=== PATIENT | female | born 1950 | race Caucasian/White ===

== ENCOUNTER 2018-07-02 11:22 | Emergency (ER) | payer OTHER ==
--- OUTSIDE RECORDS SUMMARY | 2018-07-02 11:25 | XMS REPORT | Clinical Summary ---
:1950 Author Organization [facility] Address [address] [place] [address] Care Team Providers Name Role Phone Eli Tovar MD Primary Care Provider Allergies Active Allergy Reactions Severity Noted Date Comments Ampicillin Rash Low 12/18/2017 Erythromycin 12/18/2017 Unknown reaction Penicillins Rash Low 12/18/2017 Medications Medication Sig Dispensed Refills Start Date End Date Status insulin ASPART Novolog U-100 0 Active (NovoLOG U-100 Insulin aspart Insulin aspart) 100 unit/mL 100 unit/mL subcutaneous injection solution BUMETanide (BUMEX) Take 1 mg by 0 05/03/2017 Active 0.5 MG tablet mouth every morning. rosuvastatin Take 20 mg by 0 Active (CRESTOR) 20 MG mouth nightly. tablet insulin Inject under the 0 Active glargine,hum.rec.a skin. 30 units in nlog (BASAGLAR am, 25 units in KWIKPEN U-100 pm. INSULIN SUBQ) CALCITRIOL ORAL Take by mouth 0 Active daily. magnesium oxide Take 400 mg by 0 Active (MAG-OX) 400 mg mouth daily. tablet carvedilol (COREG) Take 25 mg by 0 Active 25 MG tablet mouth 4 (four) times a day. ergocalciferol, Take by mouth 0 Active vitamin D2, daily. (VITAMIN D2 ORAL) ferrous sulfate Take by mouth 0 Active (SLOW FE ORAL) daily. cyanocobalamin/fol Take by mouth 0 Active ic ac/vit B6 daily. (FOLBEE ORAL) esomeprazole Take by mouth 0 Active magnesium (NEXIUM every morning. ORAL) traMADol (ULTRAM) Take 50 mg by 0 Active 50 mg tablet mouth nightly. insulin GLARGINE Basaglar KwikPen U-100 Insulin 100 unit/mL (3 mL) subcutaneous 0 Active (BASAGLAR KWIKPEN INJECT 35 UNIT(S) TWICE A DAY BY SUBCUTANEOUS ROUTE FOR 90 DAYS. U-100 INSULIN) 100 unit/mL injection (pen) tamoxifen TAKE 1 TABLET BY 90 tablet 3 06/03/2018 Active (NOLVADEX) 20 MG MOUTH EVERY DAY 9 chemo tabletIndications: Atypical ductal hyperplasia of breast, Type 2 diabetes mellitus with microalbuminuria, with long-term current use of insulin (HCC) hydrALAZINE Take 100 mg by 2 04/22/2018 Active (APRESOLINE) 100 mouth 3 (three) MG tablet times a day. losartan (COZAAR) Take 50 mg by 2 05/22/2018 Active 50 MG tablet mouth daily. ASPIRIN LOW DOSE Take 81 mg by 0 Active ORAL mouth daily. levoFLOXacin Levaquin 500 mg tablet 0 Discontinued (LEVAQUIN) 500 MG Take 1 tablet every 24 hours by oral route for 10 days. 8 tablet blood sugar OneTouch Ultra 0 Discontinued diagnostic strips Blue Test Strip 8 (ONETOUCH ULTRA BLUE TEST STRIP) strip test strips benzonatate Tessalon Perles 100 mg capsule 0 Discontinued (TESSALON PERLES) Take 1 capsule 3 times a day by oral route. 8 100 MG capsule aspirin (ECOTRIN) aspirin 81 mg tablet,delayed release 0 Discontinued 81 MG enteric Take 1 tablet every day by oral route. 8 coated tablet carvedilol (COREG) carvedilol 6.25 mg tablet 0 Discontinued 6.25 MG tablet 1 tablet orally four times daily 8 amLODIPine amlodipine 5 mg tablet 0 Discontinued (NORVASC) 5 mg Take 1 tablet every day by oral route in the morning for 30 days. 8 tablet tamoxifen Take 1 tablet (20 30 tablet 2 02/08/2018 Discontinued (NOLVADEX) 20 MG mg total) by 8 chemo mouth daily. tabletIndications: Atypical ductal hyperplasia of breast, Type 2 diabetes mellitus with microalbuminuria, with long-term current use of insulin (HCC) Active Problems Problem Noted Date Articular gout 12/18/2017 Combined forms of age-related cataract of both eyes 12/18/2017 Overview: Visually significant. Schedule phaco/IOL. 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 Will do OCT macula with pre-op. Diabetic neuropathy 10/02/2017 IDDM (insulin dependent diabetes mellitus) 05/02/2017 Essential hypertension 05/02/2017 Anemia 12/28/2016 Encounters Date Type Specialty Care Team Description 06/28/2018 Telephone Oncology Lesly Enrique MD 06/28/2018 Telephone Radiology Yasmine Madrid, RN 06/26/2018 Hospital Encounter Radiology Julianne Enrique ductal Lesly Whitten MD hyperplasia of left breast 06/26/2018 Hospital Encounter Radiology Julianne Enrique ductal Lesly Whitten MD hyperplasia of left breast 06/26/2018 Telephone Radiology Yasmine Madrid, RN 06/14/2018 Telephone Oncology Lesly Enrique MD 06/12/2018 Telephone Radiology Gema Felton RN 06/12/2018 Orders Only Oncology Klaus, Intraductal papilloma Lesly Whitten MD of breast, unspecified laterality (Primary Dx) 06/10/2018 Lab Lab Klaus, Julianne ductal Lesly Whitten MD hyperplasia of left breast 06/10/2018 Office Visit Oncology Nirsanty, Atypical ductal hyperplasia of breast (Primary Dx); Lesly Whitten MD Abnormal mammogram 06/10/2018 Hospital Encounter Radiology Nirsanty, Atypical ductal hyperplasia of breast; Lesly Whitten MD Type 2 diabetes mellitus with microalbuminuria, with long- term current use of insulin ([facility]) 06/10/2018 Hospital Encounter Radiology Niravavasquez, Atypical ductal hyperplasia of breast; Lesly Whitten MD Type 2 diabetes mellitus with microalbuminuria, with long- term current use of insulin ([facility]) 06/10/2018 Orders Only Oncology Klaus, Atypical ductal Lesly Whitten MD hyperplasia of left breast (Primary Dx) 05/30/2018 Refill Oncology Niravavasquez, Atypical ductal hyperplasia of breast; Lesly Whitten MD Type 2 diabetes mellitus with microalbuminuria, with long- term current use of insulin ([facility]) 02/08/2018 Office Visit Oncology Nirsanty, Atypical ductal hyperplasia of breast (Primary Dx); Lesly Whitten MD Type 2 diabetes mellitus with microalbuminuria, with long- term current use of insulin 02/04/2018 Transcribe Orders Access [place], Atypical ductal Octavio Ellsworth MD hyperplasia of breast (Primary Dx) 01/30/2018 Telephone Oncology Monika Rasheed MD 01/30/2018 Transcribe Orders Access [place], Atypical ductal Octavio Ellsworth MD hyperplasia of breast (Primary Dx) 01/23/2018 Anesthesia Event Urology Dave Annia Edwige, RANGE AIDE 01/23/2018 Surgery Urology [place], EXCISION OF LEFT Octavio Ellsworth MD BREAST MASS WITH LOCALIZATION 01/23/2018 Hospital Encounter Radiology [place], Breast mass Octavio Ellsworth MD 01/23/2018 Hospital Encounter Urology [place], Lump or mass in breast Octavio Ellsworth MD 01/22/2018 Transcribe Orders Access [place], Breast mass (Primary Octavio Ellsworth MD Dx) 01/03/2018 Hospital Encounter Radiology [place], Preop examination Octavio Ellsworth MD 01/03/2018 Pre-Admit Testing Pre-Admission [place], Preop testing (Primary Dx); Appointment Testing Octavio Ellsworth MD Preop examination; Type 2 diabetes mellitus with diabetic chronic kidney disease, unspecified CKD stage, unspecified prison insulin use status 01/03/2018 Transcribe Orders Access [place], Preop examination Octavio Ellsworth MD (Primary Dx) 12/25/2017 Hospital Encounter Radiology [place], Breast mass Octavio Ellsworth MD 12/25/2017 Hospital Encounter Radiology [place], Breast mass Octavio Ellsworth MD 12/25/2017 Telephone Radiology Asmita Weston, WILFRID 12/24/2017 Transcribe Orders Access [place], Breast mass (Primary Octavio Ellsworth MD Dx) 12/18/2017 Office Visit Ophthalmology Eli Blair Combined forms of age- related cataract of both eyes (Primary Dx)Danyelle Sun MD Mild nonproliferative diabetic retinopathy of both eyes without macular edema associated with type 2 diabetes mellitus 12/18/2017 Hospital Encounter Radiology [place], Breast changesOctavio MD fibrocystic, unspecified laterality 12/18/2017 Hospital Encounter Radiology [place], Breast changesOctavio MD fibrocystic, unspecified laterality after 07/01/2017 Immunizations Name Dates Previously Given Next Due INFLUENZA QUAD 04/13/2017, 04/28/2015 Social History Tobacco Use Types Packs/Day Years Used Date Never Smoker Smokeless Tobacco: Never Used Alcohol Use Drinks/Week oz/Week Comments No Sex Assigned at Date Recorded Not on file Job Start Date Occupation Industry Not on file Not on file Not on file Travel History Travel Start Travel End No recent travel history available. Last Filed Vital Signs Vital Sign Reading Time Taken Blood Pressure 154/66 06/26/2018 11:49 AM [employer] Pulse 85 06/26/2018 11:49 AM [employer] Temperature 35.9 C (96.6 F) 06/10/2018 11:22 AM [employer] Respiratory Rate 16 06/26/2018 11:49 AM [employer] Oxygen Saturation 95% 06/26/2018 11:49 AM [employer] Inhaled Oxygen Concentration - - Weight 118 kg (259 lb 9 oz) 06/10/2018 11:22 AM [employer] Height 165.1 cm (5' 5") 06/10/2018 11:22 AM [employer] Body Mass Index 43.19 06/10/2018 11:22 AM [employer] Plan of Treatment Date Type Specialty Care Team Description 07/04/2018 Appointment Radiology Lesly Enrique MD [address] [address] [phone] 12/09/2018 Appointment Radiology Lesly Enrique MD [address] [address] 12/09/2018 Office Visit Oncology Lesly Enrique MD [address] [place] [address] [phone] Health Maintenance Due Date Last Done Comments DIABETIC FOOT EXAM 1960 COLON CANCER SCREENING 2000 SHINGLES VACCINES (1 of 2) 2000 PNEUMOCOCCAL POLYSACCHARIDE VACCINE 09/29/2015 AGE 65 AND OVER PNEUMOCOCCAL-13 09/29/2015 INFLUENZA VACCINE 02/06/2018 04/13/2017, 04/28/2015 DIABETIC RETINAL EYE EXAM 12/18/2018 12/18/2017, 12/18/2017, 12/18/2017, Additional history exists BREAST CANCER SCREENING 06/26/2020 06/26/2018, 06/10/2018, 06/10/2018, Additional history exists Procedures Procedure Name Priority Date/Time Associated Comments Diagnosis SURGICAL PATHOLOGY Routine 06/26/2018 1:22 Results for this REQUEST PM [employer] procedure are in the results section. MAMMO DIAGNOSTIC W CAD Routine 06/26/2018 11:30 Atypical ductal Results for this LEFT AM [employer] hyperplasia of left procedure are in breast the results section. US BREAST BIOPSY LEFT Routine 06/26/2018 11:15 Atypical ductal Results for this AM [employer] hyperplasia of left procedure are in breast the results section. ESTIMATED GFR Routine 06/10/2018 12:44 Results for this PM [employer] procedure are in the results section. COMPREHENSIVE Routine 06/10/2018 12:44 Atypical ductal Results for this METABOLIC PANEL PM [employer] hyperplasia of left procedure are in breast the results section. US BREAST COMPLETE Routine 06/10/2018 10:31 Atypical ductal Results for this LEFT AM [employer] hyperplasia of procedure are in breast the results Type 2 diabetes section. mellitus with microalbuminuria, with long-term current use of insulin (HCC) MAMMO BREAST Routine 06/10/2018 10:06 Atypical ductal Results for this DIAGNOSTIC AM [employer] hyperplasia of procedure are in TOMOSYNTHESIS LEFT breast the results Type 2 diabetes section. mellitus with microalbuminuria, with long-term current use of insulin (HCC) POC GLUCOSE Routine 01/23/2018 3:50 Results for this PM CDT procedure are in the results section. SURGICAL PATHOLOGY Routine 01/23/2018 3:07 Results for this REQUEST PM CDT procedure are in the results section. KS AN ELECTIVE Routine 01/23/2018 2:29 SUPRAGLOTTIC AIRWAY PM CDT Procedure Note - Maggie Higgins CRNA - 01/23/2018 2:29 PM CDT Airway Date/Time: 01/23/2018 2:16 PM Performed by: MAGGIE HIGGINS Authorized by: IDRIS CACERES Location: OR Urgency: Elective Difficult Airway: No Anesthesiologist: IDRIS CACERES Resident/MANAGER COUNCIL/AA: MAGGIE HIGGINS Performed by: resident/MANAGER COUNCIL/AA Preoxygenated with 100% O2: Yes Mask Ventilation: Easy mask Final Airway Type: Supraglottic airway Final LMA: Ambu LMA Size: 4 Number of Attempts at Approach: 1 Eyes taped immediately after LOC; Easy mask ventilation; atraumatic intubation through open vocal cords; (+) chest rise& ETCO2; oral structures intact as per pre op POC GLUCOSE Routine 01/23/2018 12:10 PM Results for this CDT procedure are in the results section. MAMMO DIAGNOSTIC W CAD Routine 01/23/2018 11:07 AM Breast mass Results for this LEFT CDT procedure are in the results section. BREAST SPECIMEN Routine 01/23/2018 11:03 AM Lump or mass in Results for this CDT breast procedure are in the results section. US BREAST LOCALIZATION Routine 01/23/2018 11:03 AM Lump or mass in Results for this LEFT CDT breast procedure are in the results section. BIOPSY, BREAST, WITH 01/23/2018 9:00 AM Lump or mass in NEEDLE LOCALIZATION CDT breast Case Notes REQ 0900 START Special Needs REQ 0900 START POC GLUCOSE Routine 01/23/2018 6:09 AM Results for this CDT procedure are in the results section. ECG 12-LEAD Routine 01/03/2018 5:15 PM Preop testing Results for this CDT procedure are in the results section. ZZESTIMATED GFR Routine 01/03/2018 4:45 PM Results for this CDT procedure are in the results section. HEPATIC FUNCTION PANEL Routine 01/03/2018 4:45 PM Preop examination Results for this CDT Type 2 diabetes procedure are in mellitus with the results diabetic chronic section. kidney disease, unspecified CKD stage, unspecified prison insulin use status HEMOGLOBIN A1C Routine 01/03/2018 4:45 PM Preop examination Results for this CDT Type 2 diabetes procedure are in mellitus with the results diabetic chronic section. kidney disease, unspecified CKD stage, unspecified meterman insulin use status COMPREHENSIVE Routine 01/03/2018 4:45 PM Preop testing Results for this METABOLIC PANEL CDT procedure are in the results section. CBC HEMOGRAM Routine 01/03/2018 4:45 PM Preop testing Results for this CDT procedure are in the results section. XR CHEST 2 VW Routine 01/03/2018 3:36 PM Preop examination Results for this CDT procedure are in the results section. SURGICAL PATHOLOGY Routine 12/25/2017 2:51 PM Results for this REQUEST CDT procedure are in the results section. MAMMO DIAGNOSTIC W CAD Routine 12/25/2017 12:17 PM Breast mass Results for this LEFT CDT procedure are in the results section. US BREAST BIOPSY LEFT Routine 12/25/2017 12:04 PM Breast mass Results for this CDT procedure are in the results section. US BREAST COMPLETE Routine 12/18/2017 12:06 PM Breast changes, Results for this BILATERAL CDT fibrocystic, procedure are in unspecified the results laterality section. MAMMO BREAST Routine 12/18/2017 11:33 AM Breast changes, Results for this DIAGNOSTIC CDT fibrocystic, procedure are in TOMOSYNTHESIS unspecified the results BILATERAL laterality section. after 07/01/2017 Results Surgical pathology request (06/26/2018 1:22 PM [employer])Only the most recent of3 resultswithin the time period is included. [facility] DEPARTMENT OF PATHOLOGY AND GENOMIC MEDICINE Surgical pathology report See link below for PDF [facility] DEPARTMENT OF Lab Report PATHOLOGY AND GENOMIC MEDICINE Result status This is Final Report [facility] DEPARTMENT OF for [id number] PATHOLOGY AND GENOMIC MEDICINE Performing Organization Address City/State/Zipcode Phone Number [facility] DEPARTMENT OF PATHOLOGY AND [address] [place] [address] GENOMIC MEDICINE Mammo Diagnostic w Cad Left (06/26/2018 11:30 AM [employer])Only the most recent of3 resultswithin the time period is included. Narrative Performed At PROCEDURE: [facility] US BREAST BIOPSY LEFT, MAMMO DIAGNOSTIC W CAD LEFT CLINICAL HISTORY: The patient came in for ultrasound-guided core biopsy/biopsies of the left breast as previously recommended. The patient has multiple masses the partially cystic partially solid mass in the medial aspect of the breast was targeted for biopsy CONSENT: Informed consent for ultrasound guided core needle biopsy/biopsies of the left breast was obtained following a detailed discussion of the procedure, alternatives, risks, and complications including hemorrhage, infection, and clip migration. PROCEDURE: After a confirmatory pause with the biopsy team and after obtaining informed consent, approximately 3 core samples were obtained through a single skin incision and a coil-shaped clip was deployed marking the biopsy site. A vacuum-assisted needle was utilized under ultrasound guidance. The core samples obtained were sent to pathology. Postprocedure mammogram obtained, not for diagnostic purposes but for clip identification, confirmed clip deployment and postbiopsy changes. The patient tolerated the procedure and left the department in stable condition. Histology is pending. IMPRESSION: Ultrasound guided core needle biopsy/biopsies of the left breast are complete.Final pathology report is pending. Addendum will follow. [id number] Procedure Note Interface, Radiology Results Incoming - 06/26/2018 11:52 AM [employer] PROCEDURE: US BREAST BIOPSY LEFT, MAMMO DIAGNOSTIC W CAD LEFT CLINICAL HISTORY: The patient came in for ultrasound-guided core biopsy/biopsies of the left breast as previously recommended. The patient has multiple masses the partially cystic partially solid mass in the medial aspect of the breast was targeted for biopsy CONSENT: Informed consent for ultrasound guided core needle biopsy/biopsies of the left breast was obtained following a detailed discussion of the procedure, alternatives, risks, and complications including hemorrhage, infection, and clip migration. PROCEDURE: After a confirmatory pause with the biopsy team and after obtaining informed consent, approximately 3 core samples were obtained through a single skin incision and a coil-shaped clip was deployed marking the biopsy site. A vacuum- assisted needle was utilized under ultrasound guidance. The core samples obtained were sent to pathology. Postprocedure mammogram obtained, not for diagnostic purposes but for clip identification, confirmed clip deployment and postbiopsy changes. The patient tolerated the procedure and left the department in stable condition. Histology is pending. IMPRESSION: Ultrasound guided core needle biopsy/biopsies of the left breast are complete. Final pathology report is pending. Addendum will follow. [id number] Performing Organization Address City/State/Zipcode Phone Number [facility] [address] [place] [address] US Breast Biopsy Left (06/26/2018 11:15 AM [employer])Only the most recent of2 resultswithin the time period is included. Narrative Performed At PROCEDURE: [facility] US BREAST BIOPSY LEFT, MAMMO DIAGNOSTIC W CAD LEFT CLINICAL HISTORY: The patient came in for ultrasound-guided core biopsy/biopsies of the left breast as previously recommended. The patient has multiple masses the partially cystic partially solid mass in the medial aspect of the breast was targeted for biopsy CONSENT: Informed consent for ultrasound guided core needle biopsy/biopsies of the left breast was obtained following a detailed discussion of the procedure, alternatives, risks, and complications including hemorrhage, infection, and clip migration. PROCEDURE: After a confirmatory pause with the biopsy team and after obtaining informed consent, approximately 3 core samples were obtained through a single skin incision and a coil-shaped clip was deployed marking the biopsy site. A vacuum-assisted needle was utilized under ultrasound guidance. The core samples obtained were sent to pathology. Postprocedure mammogram obtained, not for diagnostic purposes but for clip identification, confirmed clip deployment and postbiopsy changes. The patient tolerated the procedure and left the department in stable condition. Histology is pending. IMPRESSION: Ultrasound guided core needle biopsy/biopsies of the left breast are complete.Final pathology report is pending. Addendum will follow. [id number] Procedure Note Hm Interface, Radiology Results Incoming - 06/26/2018 11:52 AM [employer] PROCEDURE: US BREAST BIOPSY LEFT, MAMMO DIAGNOSTIC W CAD LEFT CLINICAL HISTORY: The patient came in for ultrasound-guided core biopsy/biopsies of the left breast as previously recommended. The patient has multiple masses the partially cystic partially solid mass in the medial aspect of the breast was targeted for biopsy CONSENT: Informed consent for ultrasound guided core needle biopsy/biopsies of the left breast was obtained following a detailed discussion of the procedure, alternatives, risks, and complications including hemorrhage, infection, and clip migration. PROCEDURE: After a confirmatory pause with the biopsy team and after obtaining informed consent, approximately 3 core samples were obtained through a single skin incision and a coil-shaped clip was deployed marking the biopsy site. A vacuum- assisted needle was utilized under ultrasound guidance. The core samples obtained were sent to pathology. Postprocedure mammogram obtained, not for diagnostic purposes but for clip identification, confirmed clip deployment and postbiopsy changes. The patient tolerated the procedure and left the department in stable condition. Histology is pending. IMPRESSION: Ultrasound guided core needle biopsy/biopsies of the left breast are complete. Final pathology report is pending. Addendum will follow. [id number] Performing Organization Address City/[facility] Cent[facility] Phone Number [facility] [address] [place] [address] Estimated GFR (06/10/2018 12:44 PM [employer]) Estimated GFR 14 (A) mL/min/1.73 m2 [facility] Comment: HOSPITAL CatergoryUnitsInterpretation G1 >=90 Normal or high G2 60-89Mildly decreased [id number] to moderately decreased [id number] to severely decreased G4 15-29Severely decreased G5 <15Kidney failure The eGFR was calculated using the Chronic Kidney Disease Epidemiology Collaboration (CKD-EPI) equation. Interpretation is based on recommendations of the National Kidney Foundation-Kidney Disease Outcomes Quality Initiative (NKF-KDOQI) published in 2014. Specimen Plasma specimen Performing Organization Address City/[facility]/Zipcode Phone Number [facility] DEPARTMENT OF PATHOLOGY AND [address] [place] [address] [address] [address] Comprehensive metabolic panel (06/10/2018 12:44 PM [employer])Only the most recent of2 resultswithin the time period is included. Sodium 147 135 - 148 mEq/L [facility] Potassium 5.3 (H) 3.5 - 5.0 mEq/L [facility] Chloride 112 98 - 112 mEq/L [facility] CO2 25 24 - 31 mEq/L [facility] Anion gap 10@ANIO 7 - 15 mEq/L [facility] BUN 74 (H) 8 - 23 mg/dL [facility] Creatinine 3.20 (H) 0.50 - 0.90 mg/dL [facility] Glucose 56 (L) 65 - 99 mg/dL [facility] Calcium 9.2 8.8 - 10.2 mg/dL [facility] Protein 5.6 (L) 6.3 - 8.3 g/dL [facility] Comment: HOSPITAL 4.6-7.0 g/dL 1 week 4.4-7.6 g/dL 7 months-1year5.1-7.3 g/dL 1-2 years5.6-7.5 g/dL >3 years6.0-8.0 g/dL 18-150 6.3-8.3 g/dL Albumin 2.8 (L) 3.5 - 5.0 g/dL [facility] A/G ratio 1.0 0.7 - 3.8 [facility] Alkaline phosphatase 33 (L) 35 - 104 U/L [facility] AST 18 10 - 35 U/L [facility] ALT 19 5 - 50 U/L [facility] Total bilirubin <0.2 0.0 - 1.2 mg/dL [facility] Specimen Plasma specimen Performing Organization Address City/State/Zipcode Phone Number [facility] DEPARTMENT OF PATHOLOGY AND [address] [place] [address] GENOMIC MEDICINE [facility] [address] [place] [address] US Breast Complete Left (06/10/2018 10:31 AM [employer]) Narrative Performed At PROCEDURE: [facility] MAMMO BREAST DIAGNOSTIC TOMOSYNTHESIS LEFT, US BREAST COMPLETE LEFT Computer-assisted detection was utilized for the interpretation of this exam. COMPARISON: Prior localization images of 01/23/2018 and dating back to 2014. TECHNIQUE: Left digital diagnostic mammogram with tomosynthesis was performedand interpreted using computer-assisted detection. CLINICAL HISTORY: The patient has no current palpable breast complaints. The patient has a personal history of atypical ductal hyperplasia and papillary lesions.The patient has a family history of breast cancer in her mother. FINDINGS: MAMMOGRAM: The breast parenchyma is heterogeneously dense. This limits the overall sensitivity of mammography, possibly obscuring the detection of small masses. Postsurgical distortion is noted in the retroareolar region. A ribbon clip is noted anteriorly there are 2 groups of calcifications which have indeterminate features that cannot be confirmed on the prior examination.One is located centrally and just posterior to the surgical area of architectural distortion.The other one is very superficial and medial to the area of distortion. Loosely-grouped calcifications are also noted in the inner portion of the breast and throughout the breast parenchyma. 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 ULTRASOUND: The patient was transferred to ultrasound. Left real-time whole breast sonography included all four quadrants and the retroareolar region under close supervision by the radiologist. Ultrasound sound shows some multiple subcentimeter complex masses predominantly in the inner central breast, the retroareolar region and the 12 o'clock position. IMPRESSION: Postsurgical changes in the left retroareolar region with two indeterminate clusters of calcifications noted mammographically and several subcentimeter complex nodules noted mammographically. 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 If for some reason the MRI cannot be obtained then selecting the more suspicious cluster of calcifications in the central portion of the retroareolar region posterior to the surgical scar is recommended as well as the more solid appearing mass measuring approximately 1 cm in the 3 o'clock position of the breast. Findings and recommendations were discussed with the patient at the time of the examination. BI-RADS Category 4. Suspicious. This facility is accredited by [employer] for Mammography. A negative x-ray report should not delay biopsy if a dominant or clinically suspicious mass is present. Not all cancers are identified by x-ray. Performing Organization Address City/State/Zipcode Phone Number [facility] [address] [place] [address] Mammo Breast Diagnostic Tomosynthesis Left (06/10/2018 10:06 AM DIRECTOR FUNDS DEVELOPMENT) Narrative Performed At PROCEDURE: [facility] MAMMO BREAST DIAGNOSTIC TOMOSYNTHESIS LEFT, US BREAST COMPLETE LEFT Computer-assisted detection was utilized for the interpretation of this exam. COMPARISON: Prior localization images of 01/23/2018 and dating back to 2014. TECHNIQUE: Left digital diagnostic mammogram with tomosynthesis was performedand interpreted using computer-assisted detection. CLINICAL HISTORY: The patient has no current palpable breast complaints. The patient has a personal history of atypical ductal hyperplasia and papillary lesions.The patient has a family history of breast cancer in her mother. FINDINGS: MAMMOGRAM: The breast parenchyma is heterogeneously dense. This limits the overall sensitivity of mammography, possibly obscuring the detection of small masses. Postsurgical distortion is noted in the retroareolar region. A ribbon clip is noted anteriorly there are 2 groups of calcifications which have indeterminate features that cannot be confirmed on the prior examination.One is located centrally and just posterior to the surgical area of architectural distortion.The other one is very superficial and medial to the area of distortion. Loosely-grouped calcifications are also noted in the inner portion of the breast and throughout the breast parenchyma. 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 ULTRASOUND: The patient was transferred to ultrasound. Left real-time whole breast sonography included all four quadrants and the retroareolar region under close supervision by the radiologist. Ultrasound sound shows some multiple subcentimeter complex masses predominantly in the inner central breast, the retroareolar region and the 12 o'clock position. IMPRESSION: Postsurgical changes in the left retroareolar region with two indeterminate clusters of calcifications noted mammographically and several subcentimeter complex nodules noted mammographically. 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 If for some reason the MRI cannot be obtained then selecting the more suspicious cluster of calcifications in the central portion of the retroareolar region posterior to the surgical scar is recommended as well as the more solid appearing mass measuring approximately 1 cm in the 3 o'clock position of the breast. Findings and recommendations were discussed with the patient at the time of the examination. BI-RADS Category 4. Suspicious. This facility is accredited by [employer] for Mammography. A negative x-ray report should not delay biopsy if a dominant or clinically suspicious mass is present. Not all cancers are identified by x-ray. Performing Organization Address City/[facility]/Zipcode Phone Number [facility] [address] [place] [address] POC glucose (01/23/2018 3:50 PM CDT)Only the most recent of3 resultswithin the time period is included. POC glucose 138 (H) 65 - 99 mg/dL [facility] DEPARTMENT OF PATHOLOGY AND Comment: GENOMIC MEDICINE No Action Needed Meter ID: [id number] Block Layer: Nella Cottrell Performing Organization Address [facility]/Zipcode Phone Number [facility] DEPARTMENT OF PATHOLOGY AND [address] [place] [phone] GENOMIC MEDICINE Breast Specimen (01/23/2018 11:03 AM CDT) Narrative Performed At EXAMINATION:BREAST SPECIMEN [facility] IMPRESSION: Distal Faxitron breast specimen radiography was provided for the surgeon by [facility]. The specimen radiograph demonstrates the presence of the localization wire and adjacent tissue. The ribbon shaped biopsy marker clip is not present within the specimen as it is very superficial on the mammographic images, suggestive of a dermal location. Preoperative localization was performed of the residual mass, not the biopsy marker clip. These findings were discussed by telephone with Dr. Solano at the time of the exam. [email or web address] Procedure Note Interface, Radiology Results Incoming - 01/23/2018 4:52 PM CDT EXAMINATION: BREAST SPECIMEN IMPRESSION: Distal Faxitron breast specimen radiography was provided for the surgeon by [facility]. The specimen radiograph demonstrates the presence of the localization wire and adjacent tissue. The ribbon shaped biopsy marker clip is not present within the specimen as it is very superficial on the mammographic images, suggestive of a dermal location. Preoperative localization was performed of the residual mass, not the biopsy marker clip. These findings were discussed by telephone with Dr. Solano at the time of the exam. [email or web address] Performing Organization Address [facility] Cent[facility]ode Phone Number [facility] [address] [place] [address] US Breast Localization Left (01/23/2018 11:03 AM CDT) Narrative Performed At EXAMINATION:US BREAST LOCALIZATION LEFT, MAMMO DIAGNOSTIC W CAD [facility] LEFT01/23/2018 COMPARISONS:12/25/2017 postbiopsy mammogram and ultrasound guided core needle biopsy images INDICATION:Subareolar left breast mass suggestive of an intraductal papilloma PROCEDURE: Following a discussion of potential risks, benefits and alternatives, the patient gave verbal and written informed consent for ultrasound-guided preoperative wire localization of the left breast. A timeout was performed to verify the patient's name, date of , procedure and laterality. The patient was placed supine in the ultrasound intervention suite and the left breast was sterilely prepped and draped in the usual manner. 5 ml of lidocaine was administered subcutaneously for local anesthesia. Then, under direct and continuous sonographic guidance, a 5 cm Cabrera II preoperative localization needle was advanced to the level of the target mass. A wire was deployed and the needle was removed. The mass correlates in depth to the reinforced portion of the wire (approximately 2 cm from skin entry), however, the wire itself traverses along the superior margin of the mass. A predominant portion of the mass is inferior to the wire. These findings were conveyed to Dr. Solano at the time of the exam. Post-procedure CC and LM imaging was performed for documentation of the wire and utilizing patient in the OR. There were no immediate complications. The patient tolerated the procedure well and was transferred to the OR in stable condition with annotated images. IMPRESSION: Technically successful ultrasound-guided preoperative wire localization of a subareolar left breast mass. Further management per Dr. Solano. Of note, the residual mass was targeted for localization utilizing ultrasound guidance. The biopsy marker clip is slightly removed from the residual mass observed sonographically. [email or web address] Procedure Note Hm Interface, Radiology Results Incoming - 01/23/2018 12:16 PM CDT EXAMINATION: US BREAST LOCALIZATION LEFT, MAMMO DIAGNOSTIC W CAD LEFT 2017 COMPARISONS: 12/25/2017 postbiopsy mammogram and ultrasound guided core needle biopsy images INDICATION: Subareolar left breast mass suggestive of an intraductal papilloma PROCEDURE: Following a discussion of potential risks, benefits and alternatives, the patient gave verbal and written informed consent for ultrasound-guided preoperative wire localization of the left breast. A timeout was performed to verify the patient's name, date of , procedure and laterality. The patient was placed supine in the ultrasound intervention suite and the left breast was sterilely prepped and draped in the usual manner. 5 ml of lidocaine was administered subcutaneously for local anesthesia. Then, under direct and continuous sonographic guidance, a 5 cm Cabrera II preoperative localization needle was advanced to the level of the target mass. A wire was deployed and the needle was removed. The mass correlates in depth to the reinforced portion of the wire (approximately 2 cm from skin entry), however, the wire itself traverses along the superior margin of the mass. A predominant portion of the mass is inferior to the wire. These findings were conveyed to Dr. Solano at the time of the exam. Post-procedure CC and LM imaging was performed for documentation of the wire and utilizing patient in the OR. There were no immediate complications. The patient tolerated the procedure well and was transferred to the OR in stable condition with annotated images. IMPRESSION: Technically successful ultrasound-guided preoperative wire localization of a subareolar left breast mass. Further management per Dr. Solano. Of note, the residual mass was targeted for localization utilizing ultrasound guidance. The biopsy marker clip is slightly removed from the residual mass observed sonographically. [email or web address] Performing Organization Address [facility] Centercoal Phone Number [facility]PITALStream [employer] Services [address] [place] [address] ECG 12 lead (01/03/2018 5:15 PM CDT) Ventricular rate 77 [facility] Atrial rate 77 [facility] KS interval 126 [facility] QRSD interval 94 [facility] QT interval 398 [facility] QTC interval 450 [facility] P axis 1 52 [facility] QRS axis 1 35 [facility] T wave axis 8 [facility] EKG impression Normal sinus rhythm-Nonspecific T wave [facility] MUSE abnormality-Abnormal ECG-- Performing Organization Address [facility] Phone Number [facility] [employer] [address] [place] [address] Estimated GFR (01/03/2018 4:45 PM CDT) GFR Non Af Amer 17 (A) mL/min/1.73 m2 [facility] DEPARTMENT OF PATHOLOGY AND GENOMIC MEDICINE GFR Af Amer 20 (A) mL/min/1.73 m2 [facility] DEPARTMENT OF Comment: PATHOLOGY AND GENOMIC Chronic kidney disease: <60 mL/min/1.73m2 MEDICINE Kidney failure: <15 mL/min/1.73m2 The estimated GFR is calculated from the IDMS-traceable Modification of Diet in Renal Disease Equation. The accuracy of the calculation is poor when the creatinine is normal. Calculated values >90 mL/min/1.73m2 are not reported. This equation has not been validated in children (<18 years), women, the elderly (>70 years), or ethnic groups other than Caucasians and Americans. Specimen Plasma specimen Performing Organization Address City/State/[facility] Centercode Phone Number [facility] DEPARTMENT OF PATHOLOGY AND [address] [place], [place] [id number] [facility] CBC hemogram (01/03/2018 4:45 PM CDT) WBC 11.80 (H) 4.50 - 11.00 k/uL [facility] DEPARTMENT OF PATHOLOGY AND GENOMIC MEDICINE RBC 3.30 (L) 4.20 - 5.50 m/uL [facility] DEPARTMENT OF PATHOLOGY AND GENOMIC MEDICINE HGB 9.7 (L) 12.0 - 16.0 g/dL [facility] DEPARTMENT OF PATHOLOGY AND GENOMIC MEDICINE HCT 32.4 (L) 37.0 - 47.0 % [facility] DEPARTMENT OF PATHOLOGY AND GENOMIC MEDICINE MCV 98.2 82.0 - 100.0 fL [facility] DEPARTMENT OF PATHOLOGY AND GENOMIC MEDICINE MCH 29.4 27.0 - 34.0 pg [facility] DEPARTMENT OF PATHOLOGY AND GENOMIC MEDICINE MCHC 29.9 (L) 31.0 - 37.0 g/dL [facility] DEPARTMENT OF PATHOLOGY AND GENOMIC MEDICINE RDW - SD 58.6 (H) 37.0 - 55.0 fL [facility] DEPARTMENT OF PATHOLOGY AND GENOMIC MEDICINE MPV 11.4 8.8 - 13.2 fL [facility] DEPARTMENT OF PATHOLOGY AND GENOMIC MEDICINE Platelet count 387 150 - 400 k/uL [facility] DEPARTMENT OF PATHOLOGY AND GENOMIC MEDICINE Nucleated RBC 0.60 /100 WBC [facility] DEPARTMENT OF PATHOLOGY AND GENOMIC MEDICINE Specimen Blood Performing Organization Address City/[facility] Centercode Phone Number [facility] DEPARTMENT OF PATHOLOGY AND [address] [place] [phone] [employer] [facility] Hemoglobin A1c (01/03/2018 4:45 PM CDT) Hemoglobin A1C 6.1 (H) 4.0 - 5.6 % [facility] DEPARTMENT OF PATHOLOGY Comment: AND GENOMIC MEDICINE HbA1c cutoffs for diagnosing diabetes: 4.0% - 5.6%=normal 5.7% - 6.4%=increased risk for diabetes (prediabetes) >=6.5%=diabetes Goals for glycemic control (ADA 2016) < 7.0%Target for non adults with diabetes. More or less stringent targets may be appropriate for individual patients. <7.5% Target for Children and adolescents with type 1 diabetes. Specimen Blood Performing Organization Address City/[facility]/Zipcode Phone Number [facility] DEPARTMENT OF PATHOLOGY AND [address] [place] [address] [employer] MEDICINE Hepatic function panel (01/03/2018 4:45 PM CDT) Albumin 3.3 (L) 3.5 - 5.0 g/dL [facility] DEPARTMENT OF PATHOLOGY AND GENOMIC MEDICINE Total bilirubin <0.2 0.0 - 1.2 mg/dL [facility] DEPARTMENT OF PATHOLOGY AND GENOMIC MEDICINE Bilirubin direct <0.2 0.0 - 0.3 mg/dL [facility] DEPARTMENT OF PATHOLOGY AND GENOMIC MEDICINE Alkaline phosphatase 55 35 - 104 U/L [facility] DEPARTMENT OF PATHOLOGY AND GENOMIC MEDICINE Protein 6.7 6.3 - 8.3 g/dL [facility] DEPARTMENT OF Comment: PATHOLOGY AND GENOMIC 4.6-7.0 g/dL MEDICINE 1 week 4.4-7.6 g/dL 7 months-1year5.1-7.3 g/dL 1-2 years5.6-7.5 g/dL >3 years6.0-8.0 g/dL 18-150 6.3-8.3 g/dL ALT 18 5 - 50 U/L [facility] DEPARTMENT OF PATHOLOGY AND GENOMIC MEDICINE AST 20 10 - 35 U/L [facility] DEPARTMENT OF PATHOLOGY AND GENOMIC MEDICINE Specimen Plasma specimen Performing Organization Address City/[facility] Centercode Phone Number [facility] DEPARTMENT OF PATHOLOGY AND [address] [place] [address] [facility] MEDICINE XR Chest 2 Vw (01/03/2018 3:36 PM CDT) Narrative Performed At EXAMINATION:XR CHEST 2 VW [facility] CLINICAL HISTORY:Z01.818 Encounter for other preprocedural examination, preop COMPARISON:To previous examination from 02/15/2005 IMPRESSION: Mild thoracolumbar scoliosis is present. Cardiac mediastinal silhouette is prominent, and the lungs are clear. [id number] Procedure Note Interface, Radiology Results Incoming - 01/03/2018 3:43 PM CDT EXAMINATION: XR CHEST 2 VW CLINICAL HISTORY: Z01.818 Encounter for other preprocedural examination, preop COMPARISON: To previous examination from 02/15/2005 IMPRESSION: Mild thoracolumbar scoliosis is present. Cardiac mediastinal silhouette is prominent, and the lungs are clear. [id number] Performing Organization Address [facility]/Zipcode Phone Number [facility] [address] [place] [address] US Breast Complete Bilateral (12/18/2017 12:06 PM CDT) Narrative Performed At PROCEDURE: MAMMO BREAST DIAGNOSTIC TOMOSYNTHESIS BILATERAL, US BREAST HM [facility] COMPLETE BILATERAL Computer aided detection was utilized for the interpretation of the diagnostic mammography. HISTORY:Diffuse cystic mastopathy. COMPARISON: April 2016. DENSITY: The breast are heterogenously dense, which may obscure small masses. FINDINGS: Findings of any abnormal mass or microcalcification or adverse changes. There is a cylinder-shaped clip in the central aspect of the left breast and a T-shaped clip in the lower aspect of the left breast. A few scattered benign-appearing dystrophic calcification. And bilateral breast ultrasound complete. Scanning in all 4 quadrants and subareolar regions accomplished with close lithographic retoucher apprentice supervision. There is a few scattered simple cyst under 5 mm noted. Lymph nodes seen in the outer left breast measuring 8 x 4 mm. Left lower outer quadrant shows a 6.6 mm oval well-circumscribed complex cyst or fibroadenoma. Immediate left subareolar area shows some moderately dilated duct and a 6.6 x 4.6 mm echogenic mass. No prior ultrasounds here for comparison. IMPRESSION:Possible debris in a duct versus papilloma left retroareolar area. RECOMMENDATION: Ultrasound-guided core biopsy left subareolar mass. BI-RADS 4: Suspicious. Mildly suspicious finding. This faciility is accredited by the [employer] for Mammography. A negative x-ray report should not delay biopsy if a dominant or clinically suspicious mass is present.Not all cancers are identified by x-ray. [email or web address] Performing Organization Address City/[facility]/Zipcode Phone Number [facility] [address] [place] [address] Mammo Breast Diagnostic Tomosynthesis Bilateral (12/18/2017 11:33 AM CDT) Narrative Performed At PROCEDURE: MAMMO BREAST DIAGNOSTIC TOMOSYNTHESIS BILATERAL, US BREAST [facility] COMPLETE BILATERAL Computer aided detection was utilized for the interpretation of the diagnostic mammography. HISTORY:Diffuse cystic mastopathy. COMPARISON: April 2016. DENSITY: The breast are heterogenously dense, which may obscure small masses. FINDINGS: Findings of any abnormal mass or microcalcification or adverse changes. There is a cylinder-shaped clip in the central aspect of the left breast and a T-shaped clip in the lower aspect of the left breast. A few scattered benign-appearing dystrophic calcification. And bilateral breast ultrasound complete. Scanning in all 4 quadrants and subareolar regions accomplished with close lithographic retoucher apprentice supervision. There is a few scattered simple cyst under 5 mm noted. Lymph nodes seen in the outer left breast measuring 8 x 4 mm. Left lower outer quadrant shows a 6.6 mm oval well-circumscribed complex cyst or fibroadenoma. Immediate left subareolar area shows some moderately dilated duct and a 6.6 x 4.6 mm echogenic mass. No prior ultrasounds here for comparison. IMPRESSION:Possible debris in a duct versus papilloma left retroareolar area. RECOMMENDATION: Ultrasound-guided core biopsy left subareolar mass. BI-RADS 4: Suspicious. Mildly suspicious finding. This faciility is accredited by the [employer] for Mammography. A negative x-ray report should not delay biopsy if a dominant or clinically suspicious mass is present.Not all cancers are identified by x-ray. [email or web address] Performing Organization Address City/State/Zipcode Phone Number [facility] [address] [place] [address] after 07/01/2017 Insurance Payer Benefit Plan / Group Subscriber ID Type Phone Address [employer] MEDICARE [employer] MEDICARE PPO/PFFS/ERS [facility] xxxxxxxxx PPO Advance Directives Patient has advance care planning documents on file. For more information, please contact:[place] [address] [place] [address]
--- OUTSIDE RECORDS SUMMARY | 2018-07-02 11:26 | XMS REPORT | Clinical Summary ---
:1950 Author Organization [facility] Address [address] [place] [address] Care Team Providers Name Role Phone Compa Robles Unavailable Pcp, No Primary Care Provider Unavailable Allergies Active Allergy Reactions Severity Noted Date Comments Ampicillin Rash High 04/17/2017 Erythromycin Rash High 04/17/2017 Penicillins Rash High 04/17/2017 Medications Medication Sig Dispensed Refills Start End Date Status Date rosuvastatin Take 20 mg by mouth 0 Active (CRESTOR) 20 MG daily. tablet esomeprazole Take 40 mg by mouth 0 Active (NEXIUM) 40 MG daily. capsule traMADol (ULTRAM) Take 50 mg by mouth 0 Active 50 mg tablet every 6 (six) hours as needed for Pain. calcitriol Take 0.25 mcg by 0 Active (ROCALTROL) 0.25 mouth daily. MCG capsule iron, carbonyl 45 Take by mouth daily 0 Active mg Tab tablet . cholecalciferol, Take 1,000 Units by 0 Active vitamin D3, 1,000 mouth daily. unit capsule magnesium oxide Take 400 mg by 0 Active (MAG-OX) 400 mg mouth daily. tablet bumetanide (BUMEX) Take 1 tablet (0.5 0 Active 0.5 MG tablet mg total) by mouth 7 2 (two) times daily. aspirin 81 MG Take 81 mg by mouth 0 Active chewable tablet daily. carvedilol (COREG) Take 6.25 mg by 0 Active 6.25 MG tablet mouth 4 (four) times daily. amLODIPine Take 5 mg by mouth 0 Active (NORVASC) 5 MG daily. tablet B complex-vitamin Take 1 tablet by 0 Active C-folic acid mouth daily. (FOLBEE PLUS) 5 mg Tab tamoxifen Take 20 mg by mouth 0 Active (NOLVADEX) 20 MG daily. tablet insulin glargine Inject 0 Active (BASAGLAR KWIKPEN subcutaneously 2 U-100 INSULIN) 100 (two) times daily. unit/mL (3 mL) InPn insulin aspart Inject 0 Active U-100 (NOVOLOG subcutaneously 3 FLEXPEN U-100 (three) times daily INSULIN) 100 with meals. unit/mL InPn carvedilol (COREG) Take 3.125 mg by 0 02/19/20 Discontinued 3.125 MG tablet mouth 2 (two) times 18 daily with breakfast and dinner. HYDROcodone-acetam Take 1 tablet by 0 02/19/20 Discontinued inophen (NORCO mouth every 6 (six) 18 5-325) 5-325 mg hours as needed for per tablet Pain. acetaminophen Take 2 tablets (650 30 tablet 0 04/27/20 (TYLENOL) 325 MG mg total) by mouth 7 18 tablet every 6 (six) hours as needed for up to 360 days. DEXTROSE 50 % IN Inject 25 mLs (12.5 0 02/19/20 Discontinued WATER (DEXTROSE g total) 7 18 50%, D50W,) Syrg intravenously as injection needed (blood sugar less than 70 and patient unable to take PO juice or soda). glucagon, human Inject 1 mL (1 mg 0 02/19/20 Discontinued recombinant, 1 total) 7 18 mg/mL SolR intramuscularly as injection needed. sodium chloride Inject 5 mLs 5 mL 0 02/19/20 Discontinued 0.9%, NS, 0.9 % intravenously as 7 18 injection needed. sodium chloride 30 ml/hr prn to 100 mL 0 02/19/20 Discontinued 0.9% (NS) infusion keep line open. 7 18 ondansetron Inject 2 mLs (4 mg 20 mL 0 02/19/20 Discontinued (ZOFRAN) 4 mg/2 mL total) 7 18 injection intravenously 4 (four) times daily as needed. insulin lispro Inject 18 Units 10 mL 0 02/19/20 Discontinued (HUMALOG) 100 subcutaneously 3 7 18 unit/mL injection (three) times daily before meals. insulin lispro Inject 0-16 Units 10 mL 0 02/19/20 Discontinued (HUMALOG) 100 subcutaneously as 7 18 unit/mL injection needed (High blood sugar). insulin lispro Inject 0-4 Units 10 mL 0 02/19/20 Discontinued (HUMALOG) 100 subcutaneously 7 18 unit/mL injection every night as needed (High blood sugar). hydrALAZINE Take 1 tablet (25 0 02/19/20 Discontinued (APRESOLINE) 25 MG mg total) by mouth 7 18 tablet every 8 (eight) hours as needed (SBP> 160mmHg). insulin detemir Inject 0.38 mLs (38 0 02/19/20 Discontinued (LEVEMIR) 100 Units total) 7 18 unit/mL (3 mL) subcutaneously 2 InPn injection (two) times daily. 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 05/02/2017 Acute blood loss anemia 05/02/2017 Acute kidney injury superimposed on CKD 05/02/2017 IDDM (insulin dependent diabetes mellitus) 05/02/2017 Essential hypertension 05/02/2017 Esophagitis 05/02/2017 Cellulitis and abscess of foot excluding toe 04/20/2017 Vomiting 04/17/2017 Fever 04/17/2017 Severe anemia 04/17/2017 Encounters Date Type Specialty Care Team Description 02/27/2018 Anesthesia Event Zofia Sebastian, JEFE 02/27/2018 Surgery Sam Green COMPLEX M., MD WOUND LOWER EXTREMITY 02/27/2018 Hospital Encounter Sam Green MD 02/18/2018 Hospital Encounter Pre-Admission Sam Green MD after 07/01/2017 Social History Tobacco Use Types Packs/Day Years [...] Vital Sign Reading Time Taken Blood Pressure 154/69 02/27/2018 11:50 AM CDT Pulse 66 02/27/2018 11:50 AM CDT Temperature 36.4 C (97.6 F) 02/27/2018 10:56 AM CDT Respiratory Rate 20 02/27/2018 11:50 AM CDT Oxygen Saturation 99% 02/27/2018 11:30 AM CDT Inhaled Oxygen Concentration - - Weight 111.4 kg (245 lb 9.6 oz) 02/27/2018 10:06 AM CDT Height 165.1 cm (5' 5") 02/27/2018 10:06 AM CDT Body Mass Index 40.87 02/27/2018 10:06 AM CDT Plan of Treatment Health Maintenance Due Date Last Done Comments INFLUENZA VACCINE 04/08/2018 Procedures Procedure Name Priority Date/Time Associated Comments Diagnosis POCT-GLUCOSE METER Routine 02/27/2018 11:01 Results for this AM CDT procedure are in the results section. ANAEROBIC CULTURE Routine 02/27/2018 10:35 Results for this AM CDT procedure are in the results section. SURGICALLY OBTAINED Routine 02/27/2018 10:35 Results for this CULTURE + GRAM STAIN AM CDT procedure are in the results section. TISSUE EXAM AP Routine 02/27/2018 10:33 Results for this AM CDT procedure are in the results section. POCT-GLUCOSE METER Routine 02/27/2018 9:49 Results for this AM CDT procedure are in the results section. I&D,BONE FOOT 02/27/2018 9:40 Nonhealing surgical AM CDT wound, subsequent encounter REPAIR,COMPLEX WOUND 02/27/2018 9:40 Nonhealing surgical LOWER EXTREMITY AM CDT wound, subsequent encounter GLUCOSE Routine 02/18/2018 12:40 Results for this PM CDT procedure are in the results section. BUN AND CREATININE Routine 02/18/2018 12:40 Results for this PM CDT procedure are in the results section. ELECTROLYTE PANEL Routine 02/18/2018 12:40 Results for this PM CDT procedure are in the results section. HEMOGLOBIN Routine 02/18/2018 12:40 Results for this PM CDT procedure are in the results section. after 07/01/2017 Results POC-Glucose meter (02/27/2018 11:01 AM CDT)Only the most recent of2 resultswithin the time period is included. POC-Glucose Meter 153 (H)Comment: TESTED AT 70 - 110 mg/dL [facility] [address] [place] [address] Specimen Blood Performing Organization Address City/State/Zipcode Phone Number [facility] [address] [place] [address] [phone] [place] Anaerobic culture (02/27/2018 10:35 AM CDT) Result No anaerobes isolated [facility] Specimen Tissue - Foot, Left Performing Organization Address City/[facility]/Zipcode Phone Number [address] [address] [phone] [place] Surgically obtained culture + gram stain (02/27/2018 10:35 AM CDT) Result 4+ Diphtheroid (A) [facility] Gram Stain Result <1+ WBCs [facility] Gram Stain Result No organisms seen [facility] Specimen Tissue - Foot, Left Performing Organization Address [facility] Phone Number [address] [address] [place] Tissue Exam (02/27/2018 10:33 AM CDT) Case Report Surgical Pathology Report Case: [id number] [facility] Authorizing Provider:Sam Green MDCollected: 02/27/2018 [facility] Ordering Location: [facility] PERI[facility] Received: 02/27/2018 1429 SERVICES Pathologist: Danita Chen MD Specimen:Foot, Left, heal wound DIAGNOSIS BONE, LEFT FOOT, HEALING WOUND, EXCISION: [facility] - BONE WITH MARROW FIBROSIS, REMODELING CHANGES AND FOCAL LYMPHOPLASMACYTIC INFILTRATES [facility] (SEE COMMENT) Signing Pathologist Direct Phone Line: [phone] COMMENT In the appropriate clinical [facility] setting, the features are most [facility] compatible with chronic osteomyelitis. Clinical/radiological and microbiology correlation is recommended. CPT Code(s) 21244, [address]31 [facility] CLINICAL HISTORY Nonhealing surgical wound [facility] SPECIMEN SOURCE Left foot healing wound [facility] GROSS DESCRIPTION Received in formalin labeled [facility] "foot, left", description [facility] "healing wound" is a 2.0 x 1.1 x 0.2 cm aggregate of bone. The specimen is entirely submitted in cassette A1 for decalcification. DB/ew MICROSCOPIC DESCRIPTION Performed. [facility] Specimen Tissue - Foot, Left Performing Organization Address [facility] Services[facility] Phone Number [address] [address] [phone] CENTER BUN and Creatinine (02/18/2018 12:40 PM CDT) BUN 64 (H) 7 - 21 mg/dL [facility] Creatinine 2.43 (H) 0.57 - 1.25 mg/dL [facility] EGFR 20Comment: ESTIMATED GFR IS mL/min/1.73 sq m [facility] NOT ACCURATE CREATININE [facility] CENTER CLEARANCE IN PREDICTING GLOMERULAR FILTRATION RATE. ESTIMATED GFR IS NOT APPLICABLE FOR DIALYSIS PATIENTS. Specimen Blood Performing Organization Address [facility] Servicescode Phone Number [address] [address] [phone] CENTER Hemoglobin (02/18/2018 12:40 PM CDT) Hemoglobin 11.2 11.2 - 15.7 GM/DL [facility] Specimen Blood Performing Organization Address [facility] Servicescode Phone Number [address] [address] CENTER Glucose (02/18/2018 12:40 PM CDT) Glucose 65 (L) 70 - 105 mg/dL [facility] Specimen Blood Performing Organization Address [facility] Servicescode Phone Number [address] [address] [phone] CENTER Electrolytes (02/18/2018 12:40 PM CDT) Sodium 145 136 - 145 meq/L [facility] Potassium 4.1 3.5 - 5.1 meq/L [facility] Chloride 110 (H) 98 - 107 meq/L [facility] CO2 27 22 - 29 meq/L [facility] Specimen Blood Performing Organization Address City/State/Zipcode Phone Number [facility] [address] [place], [place] [phone] CENTER after 07/01/2017 Insurance Payer Benefit Plan / Group Subscriber ID Type Phone Address [employer] - MEDICARE MGD [employer] MEDICARE ADV xxxxxxxxx Maps Contracted CARE Advance Directives For more information, please contact:[facility] [place], [place] [phone] Code Status Date Activated Date Inactivated Comments Full Code 02/27/2018 9:29 AM 02/28/2018 12:32 PM This code status was determined by: Patient Full Code 04/17/2017 7:00 PM 05/02/2017 8:41 PM This code status was determined by: Patient
--- OUTSIDE RECORDS SUMMARY | 2018-07-02 11:27 | XMS REPORT ---
:1950 [facility] [address] [place] [address] [place] [address] Care Team Providers Name Role Phone FERNANDO GREEN Unavailable Unavailable RUEL MONTEIROARIAN NAKITA Unavailable Unavailable DOUG GARCIA Unavailable Unavailable Problems This patient has no known problems. Allergies, Adverse Reactions, Alerts This patient has no known allergies or adverse reactions. Medications This patient has no known medications. Results Test Description Test Time Test Comments Text Results Atomic Results Result Comments TISSUE EXAM 2018-03-05 16:08:00 Surgical Pathology Report Case: [id number] Authorizing Provider: Fernando Green MD Collected: 02/27/2018 1033 Ordering Location: [facility] PERIOPERATIVE Received: 02/27/2018 1429 SERVICES Pathologist: Danita Chen MD Specimen: Foot, Left, heal wound BONE, LEFT FOOT, HEALING WOUND, EXCISION: - BONE WITH MARROW FIBROSIS, REMODELING CHANGES AND FOCAL LYMPHOPLASMACYTIC INFILTRATES (SEE COMMENT) Signing Pathologist Direct Phone Line: [phone] signed by Danita Cehn MD on 03/05/2018 at 4:08 PMIn the appropriate clinical setting, the features are most compatible with chronic osteomyelitis. Clinical/radiological and microbiology correlation is recommended.87505, 21735Jjourytetl surgical woundLeft foot healing woundReceived in formalin labeled "foot, left", description "healing wound" is a 2.0 x 1.1 x 0.2 cm aggregate of bone. The specimen is entirely submitted in cassette A1 for decalcification. DB/ew Performed. ANAEROBIC CULTURE 2018-03-03 16:31:00 Test Item Value Reference Range Comments CULTURE (Get In) (test kltv=2789) No anaerobes isolated SURGICALLY OBTAINED CULTURE + GRAM [id number] 14:15:00 Test Item Value Reference Range Comments CULTURE (BEAKER) (test bdhm=7705) 4+ Diphtheroid GRAM STAIN RESULT (BEAKER) (test <1+ WBCs zrih=6040) GRAM STAIN RESULT (BEAKER) (test No organisms seen zwlh=53668) POCT-GLUCOSE [id number] 11:03:00 Test Item Value Reference Range Comments POC-GLUCOSE METER (BEAKER) 153 mg/dL 70-[address] [facility] [address] [facility] (test lsas=3494) [facility] [address] POCT-GLUCOSE [id number] 09:51:00 Test Item Value Reference Range Comments POC-GLUCOSE METER (BEAKER) 154 mg/dL 70-[address] [facility] [address] [facility] (test fpun=9421) [facility] [address] BUN AND [id number] 14:46:00 Test Item Value Reference Range Comments BLOOD UREA NITROGEN 64 mg/dL 7-21 (BEAKER) (test awlv=669) CREATININE (BEAKER) (test 2.43 mg/dL 0.57-1.25 vejg=227) EGFR (BEAKER) (test 20 mL/min/1.73 sq m ESTIMATED GFR IS NOT oxjj=9145) ACCURATE CREATININE CLEARANCE IN PREDICTING GLOMERULAR FILTRATION RATE. ESTIMATED GFR IS NOT APPLICABLE FOR DIALYSIS PATIENTS. [id number] 14:34:00 Test Item Value Reference Range Comments SODIUM (BEAKER) (test ivuq=936) 145 meq/L 136-145 POTASSIUM (BEAKER) (test wfff=501) 4.1 meq/L 3.5-5.1 CHLORIDE (BEAKER) (test gvqj=649) 110 meq/L 98-107 CO2 (BEAKER) (test aviw=460) 27 meq/L 22-29 [id number] 14:34:00 Test Item Value Reference Range Comments GLUCOSE RANDOM (BEAKER) (test jjfd=392) 65 mg/dL 70-105 [id number] 14:13:00 Test Item Value Reference Range Comments HEMOGLOBIN (BEAKER) (test wzyh=278) 11.2 GM/DL 11.2-15.7 ANG, REMOVAL OF TUNNELED CVC W/O [id number] 12:55:00Reason for Exam:-> Other acute osteomyelitis, left ankle and footFINAL REPORT Procedure: Removal of tunneled catheter, 06/08/2017 HISTORY: Catheter no longer needed Anesthesia: 1% lidocaine Approach: Right chest Modality: None TECHNIQUE: Following sterile preparation, local anesthesia was applied to the site about the tunneled catheter. Using blunt and sharp dissection, the catheter was removed and hemostasis was obtained. A bandage was then applied. CONCLUSION: Removal of tunneled catheter.. Signed: Loretta Trotter MDReport Verified Date/Time: 06/21/2017 12:55:02 Reading Location: [place] [address] Angio Body Reading Room Electronically signed by: LORETTA TROTTER M.D. on 2016 12:55 PMPT/[id number] 08:21:00 Test Item Value Reference Range Comments PROTIME (BEAKER) (test jfkc=624) 12.7 seconds 11.7-14.7 INR (BEAKER) (test ekxj=409) 1.0 <=5.9 PARTIAL THROMBOPLASTIN TIME (BEAKER) (test 21.5 seconds 22.5-36.0 hclf=051) RECOMMENDED COUMADIN/WARFARIN INR THERAPY RANGESSTANDARD DOSE: 2.0 - 3.0 Includes: PROPHYLAXIS forvenous thrombosis, systemic embolization; TREATMENT for venous thrombosis and/or pulmonary embolus.HIGH RISK: Target INR is 2.5-3.5 for patients with mechanical heart valves.AFB CULTURE + [id number] 11:58:00 Test Item Value Reference Range Comments CULTURE (BEAKER) (test No acid-fast bacilli isolated qhnm=9500) in 42 days AFB SMEAR (BEAKER) (test No acid fast bacilli seen soyl=182) FUNGUS CULTURE + [id number] 07:36:00 Test Item Value Reference Range Comments CULTURE (BEAKER) (test No fungus isolated in 28 days gitn=3925) FUNGUS SMEAR (BEAKER) (test No fungi seen khhj=6289) POCT-GLUCOSE [id number] 12:27:00 Test Item Value Reference Range Comments POC-GLUCOSE METER (BEAKER) 112 mg/dL 70-110 TESTED AT [address] (test qhfd=7803) [facility] [address] POCT-GLUCOSE [id number] 07:51:00 Test Item Value Reference Range Comments POC-GLUCOSE METER (BEAKER) 85 mg/dL 70-110 TESTED AT [address] (test snwl=2014) [facility] [address] BASIC METABOLIC [id number] 06:06:00 Test Item Value Reference Range Comments SODIUM (BEAKER) (test 146 meq/L 136-145 zzcr=432) POTASSIUM (BEAKER) (test 3.8 meq/L 3.5-5.1 ghmk=132) CHLORIDE (BEAKER) (test 111 meq/L 98-107 mppa=125) CO2 (BEAKER) (test 28 meq/L 22-29 eugk=417) BLOOD UREA NITROGEN 33 mg/dL 7-21 (BEAKER) (test nmrk=849) CREATININE (BEAKER) (test 1.88 mg/dL 0.57-1.25 aosa=444) GLUCOSE RANDOM (BEAKER) 92 mg/dL 70-105 (test ypad=339) CALCIUM (BEAKER) (test 8.6 mg/dL 8.4-10.2 euna=977) EGFR (BEAKER) (test 27 mL/min/1.73 sq m ESTIMATED GFR IS NOT dlyl=1474) ACCURATE CREATININE CLEARANCE IN PREDICTING GLOMERULAR FILTRATION RATE. ESTIMATED GFR IS NOT APPLICABLE FOR DIALYSIS PATIENTS. [id number] 06:05:00 Test Item Value Reference Range Comments PHOSPHORUS (BEAKER) (test kdrh=964) 3.6 mg/dL 2.3-4.7 [id number] 06:05:00 Test Item Value Reference Range Comments MAGNESIUM (BEAKER) (test zkdh=021) 2.0 mg/dL 1.6-2.6 CBC W/PLT COUNT & AUTO [id number] 05:43:00 Test Item Value Reference Range Comments WHITE BLOOD CELL COUNT (BEAKER) (test lqbv=849) 6.8 K/ L 3.5-10.5 RED BLOOD CELL COUNT (BEAKER) (test mcre=138) 2.65 M/ L 3.93-5.22 HEMOGLOBIN (BEAKER) (test zkja=320) 7.6 GM/DL 11.2-15.7 HEMATOCRIT (BEAKER) (test roqk=238) 25.6 % 34.1-44.9 MEAN CORPUSCULAR VOLUME (BEAKER) (test wckp=672) 96.6 fL 79.4-94.8 MEAN CORPUSCULAR HEMOGLOBIN (BEAKER) (test 28.7 pg 25.6-32.2 vrsd=774) MEAN CORPUSCULAR HEMOGLOBIN CONC (BEAKER) (test 29.7 GM/DL 32.2-35.5 tkpf=856) RED CELL DISTRIBUTION WIDTH (BEAKER) (test 18.4 % 11.7-14.4 fnvi=032) PLATELET COUNT (BEAKER) (test iaej=472) 393 K/CU MM 150-450 MEAN PLATELET VOLUME (BEAKER) (test pcqf=642) 11.3 fL 9.4-12.3 NUCLEATED RED BLOOD CELLS (BEAKER) (test 0 /100 WBC 0-0 ruqc=458) NEUTROPHILS RELATIVE PERCENT (BEAKER) (test 53 % okxw=993) LYMPHOCYTES RELATIVE PERCENT (BEAKER) (test 31 % rcjr=992) MONOCYTES RELATIVE PERCENT (BEAKER) (test 9 % cple=729) EOSINOPHILS RELATIVE PERCENT (BEAKER) (test 5 % ziww=919) BASOPHILS RELATIVE PERCENT (BEAKER) (test 1 % grkh=813) NEUTROPHILS ABSOLUTE COUNT (BEAKER) (test 3.60 K/ L 1.56-6.13 noyw=482) LYMPHOCYTES ABSOLUTE COUNT (BEAKER) (test 2.13 K/ L 1.18-3.74 bzzz=279) MONOCYTES ABSOLUTE COUNT (BEAKER) (test 0.64 K/ L 0.24-0.36 zbbw=543) EOSINOPHILS ABSOLUTE COUNT (BEAKER) (test 0.36 K/ L 0.04-0.36 rkjb=506) BASOPHILS ABSOLUTE COUNT (BEAKER) (test 0.06 K/ L 0.01-0.08 afuq=951) IMMATURE GRANULOCYTES-RELATIVE PERCENT (BEAKER) 1 % 0-1 (test aehz=3732) POCT-GLUCOSE [id number] 21:42:00 Test Item Value Reference Range Comments POC-GLUCOSE METER (BEAKER) 185 mg/dL 70-110 TESTED AT [address] (test yzqh=6557) [facility] [address] POCT-GLUCOSE [id number] 17:41:00 Test Item Value Reference Range Comments POC-GLUCOSE METER (BEAKER) 122 mg/dL 70-110 TESTED AT [address] (test lmiy=4017) [facility] [address] POCT-GLUCOSE [id number] 12:07:00 Test Item Value Reference Range Comments POC-GLUCOSE METER (BEAKER) 114 mg/dL 70-[address] [facility] [address] [facility] (test auqz=1818) [facility] [address] POCT-GLUCOSE [id number] 08:30:00 Test Item Value Reference Range Comments POC-GLUCOSE METER (BEAKER) 141 mg/dL 70-[address] [facility] [address] [facility] (test hgdz=6313) [facility] [address] CALCIUM, [id number] 07:39:00 Test Item Value Reference Range Comments CALCIUM IONIZED (BEAKER) (test fylr=207) 1.16 mmol/L 1.12-1.27 PH, BLOOD (BEAKER) (test twvx=5136) 7.39 BASIC METABOLIC [id number] 05:53:00 Test Item Value Reference Range Comments SODIUM (BEAKER) (test 144 meq/L 136-145 gznq=399) POTASSIUM (BEAKER) (test 4.1 meq/L 3.5-5.1 rxlw=806) CHLORIDE (BEAKER) (test 110 meq/L 98-107 jfpq=048) CO2 (BEAKER) (test 27 meq/L 22-29 eekx=489) BLOOD UREA NITROGEN 32 mg/dL 7-21 (BEAKER) (test xhtx=124) CREATININE (BEAKER) (test 1.90 mg/dL 0.57-1.25 kzkh=786) GLUCOSE RANDOM (BEAKER) 158 mg/dL 70-105 (test dows=366) CALCIUM (BEAKER) (test 8.9 mg/dL 8.4-10.2 evzs=157) EGFR (BEAKER) (test 26 mL/min/1.73 sq m ESTIMATED GFR IS NOT spyh=9381) ACCURATE CREATININE CLEARANCE IN PREDICTING GLOMERULAR FILTRATION RATE. ESTIMATED GFR IS NOT APPLICABLE FOR DIALYSIS PATIENTS. [id number] 05:47:00 Test Item Value Reference Range Comments PHOSPHORUS (BEAKER) (test rjul=136) 3.7 mg/dL 2.3-4.7 [id number] 05:47:00 Test Item Value Reference Range Comments MAGNESIUM (BEAKER) (test zelw=332) 1.7 mg/dL 1.6-2.6 VANCOMYCIN LEVEL, [id number] 05:44:00 Test Item Value Reference Range Comments VANCOMYCIN RANDOM (BEAKER) (test xbkm=357) 18.4 ug/mL Reference Range: No NormalsCBC W/PLT COUNT & AUTO [id number] 05: 27:00 Test Item Value Reference Range Comments WHITE BLOOD CELL COUNT (BEAKER) (test fmhv=299) 7.4 K/ L 3.5-10.5 RED BLOOD CELL COUNT (BEAKER) (test wfco=598) 2.71 M/ L 3.93-5.22 HEMOGLOBIN (BEAKER) (test zttq=114) 7.6 GM/DL 11.2-15.7 HEMATOCRIT (BEAKER) (test nrew=208) 26.2 % 34.1-44.9 MEAN CORPUSCULAR VOLUME (BEAKER) (test frpl=566) 96.7 fL 79.4-94.8 MEAN CORPUSCULAR HEMOGLOBIN (BEAKER) (test 28.0 pg 25.6-32.2 szdf=703) MEAN CORPUSCULAR HEMOGLOBIN CONC (BEAKER) (test 29.0 GM/DL 32.2-35.5 yvih=320) RED CELL DISTRIBUTION WIDTH (BEAKER) (test 18.4 % 11.7-14.4 zybk=163) PLATELET COUNT (BEAKER) (test lvrx=507) 393 K/CU MM 150-450 MEAN PLATELET VOLUME (BEAKER) (test dsfy=252) 10.9 fL 9.4-12.3 NUCLEATED RED BLOOD CELLS (BEAKER) (test 0 /100 WBC 0-0 gxgn=350) NEUTROPHILS RELATIVE PERCENT (BEAKER) (test 62 % tqsr=791) LYMPHOCYTES RELATIVE PERCENT (BEAKER) (test 25 % oujb=611) MONOCYTES RELATIVE PERCENT (BEAKER) (test 8 % sxil=269) EOSINOPHILS RELATIVE PERCENT (BEAKER) (test 5 % mcmj=202) BASOPHILS RELATIVE PERCENT (BEAKER) (test 1 % lhdg=507) NEUTROPHILS ABSOLUTE COUNT (BEAKER) (test 4.54 K/ L 1.56-6.13 jtrn=829) LYMPHOCYTES ABSOLUTE COUNT (BEAKER) (test 1.82 K/ L 1.18-3.74 lrjl=579) MONOCYTES ABSOLUTE COUNT (BEAKER) (test 0.57 K/ L 0.24-0.36 tmwa=809) EOSINOPHILS ABSOLUTE COUNT (BEAKER) (test 0.33 K/ L 0.04-0.36 vusy=386) BASOPHILS ABSOLUTE COUNT (BEAKER) (test 0.04 K/ L 0.01-0.08 fcoa=309) IMMATURE GRANULOCYTES-RELATIVE PERCENT (BEAKER) 1 % 0-1 (test ufyq=5895) POCT-GLUCOSE [id number] 04:13:00 Test Item Value Reference Range Comments POC-GLUCOSE METER (BEAKER) 202 mg/dL 70-110 TESTED AT [address] (test scal=2994) [place] [id number] POCT-GLUCOSE [id number] 01:47:00 Test Item Value Reference Range Comments POC-GLUCOSE METER (BEAKER) 234 mg/dL 70-110 TESTED AT [address] (test yhhu=5318) [place] [address] POCT-GLUCOSE [id number] 18:16:00 Test Item Value Reference Range Comments POC-GLUCOSE METER (BEAKER) 131 mg/dL 70-110 TESTED AT [address] (test qhoa=1290) [place] [address] POCT-GLUCOSE [id number] 16:43:00 Test Item Value Reference Range Comments POC-GLUCOSE METER (BEAKER) 159 mg/dL 70-110 TESTED AT [address] (test hvaw=3415) [place] [address] VANCOMYCIN LEVEL, [id number] 14:24:00 Test Item Value Reference Range Comments VANCOMYCIN TROUGH (BEAKER) (test dlar=788) 24.6 ug/mL 10.0-20.0 POCT-GLUCOSE [id number] 12:20:00 Test Item Value Reference Range Comments POC-GLUCOSE METER (BEAKER) 145 mg/dL 70-110 TESTED AT [address] (test tzmy=3281) [place] [address] POCT-GLUCOSE [id number] 08:26:00 Test Item Value Reference Range Comments POC-GLUCOSE METER (BEAKER) 148 mg/dL 70-110 TESTED AT [address] (test kwgj=8816) [place] [address] BASIC METABOLIC [id number] 04:54:00 Test Item Value Reference Range Comments SODIUM (BEAKER) (test 143 meq/L 136-145 owsa=765) POTASSIUM (BEAKER) (test 4.1 meq/L 3.5-5.1 bsct=668) CHLORIDE (BEAKER) (test 110 meq/L 98-107 pyxn=013) CO2 (BEAKER) (test 28 meq/L 22-29 savi=489) BLOOD UREA NITROGEN 32 mg/dL 7-21 (BEAKER) (test kmyu=721) CREATININE (BEAKER) (test 2.08 mg/dL 0.57-1.25 eikv=781) GLUCOSE RANDOM (BEAKER) 114 mg/dL 70-105 (test imzt=804) CALCIUM (BEAKER) (test 8.5 mg/dL 8.4-10.2 qduv=448) EGFR (BEAKER) (test 24 mL/min/1.73 sq m ESTIMATED GFR IS NOT csdj=5680) ACCURATE CREATININE CLEARANCE IN PREDICTING GLOMERULAR FILTRATION RATE. ESTIMATED GFR IS NOT APPLICABLE FOR DIALYSIS PATIENTS. [id number] 04:49:00 Test Item Value Reference Range Comments PHOSPHORUS (BEAKER) (test qxdb=317) 3.4 mg/dL 2.3-4.7 [id number] 04:49:00 Test Item Value Reference Range Comments MAGNESIUM (BEAKER) (test zhzz=674) 1.6 mg/dL 1.6-2.6 CBC W/PLT COUNT & AUTO [id number] 04:27:00 Test Item Value Reference Range Comments WHITE BLOOD CELL COUNT (BEAKER) (test yzhy=106) 7.8 K/ L 3.5-10.5 RED BLOOD CELL COUNT (BEAKER) (test dvww=957) 2.70 M/ L 3.93-5.22 HEMOGLOBIN (BEAKER) (test wruh=105) 7.5 GM/DL 11.2-15.7 HEMATOCRIT (BEAKER) (test urtp=805) 25.9 % 34.1-44.9 MEAN CORPUSCULAR VOLUME (BEAKER) (test lblz=083) 95.9 fL 79.4-94.8 MEAN CORPUSCULAR HEMOGLOBIN (BEAKER) (test 27.8 pg 25.6-32.2 rrsy=098) MEAN CORPUSCULAR HEMOGLOBIN CONC (BEAKER) (test 29.0 GM/DL 32.2-35.5 velx=845) RED CELL DISTRIBUTION WIDTH (BEAKER) (test 18.2 % 11.7-14.4 oedi=130) PLATELET COUNT (BEAKER) (test xfgd=709) 423 K/CU MM 150-450 MEAN PLATELET VOLUME (BEAKER) (test pmjs=832) 10.5 fL 9.4-12.3 NUCLEATED RED BLOOD CELLS (BEAKER) (test 0 /100 WBC 0-0 podw=526) NEUTROPHILS RELATIVE PERCENT (BEAKER) (test 60 % cmte=275) LYMPHOCYTES RELATIVE PERCENT (BEAKER) (test 26 % leau=222) MONOCYTES RELATIVE PERCENT (BEAKER) (test 7 % ppco=485) EOSINOPHILS RELATIVE PERCENT (BEAKER) (test 4 % bzxy=156) BASOPHILS RELATIVE PERCENT (BEAKER) (test 1 % krfs=363) NEUTROPHILS ABSOLUTE COUNT (BEAKER) (test 4.69 K/ L 1.56-6.13 wpbl=014) LYMPHOCYTES ABSOLUTE COUNT (BEAKER) (test 2.02 K/ L 1.18-3.74 afxb=932) MONOCYTES ABSOLUTE COUNT (BEAKER) (test 0.57 K/ L 0.24-0.36 wkuo=640) EOSINOPHILS ABSOLUTE COUNT (BEAKER) (test 0.34 K/ L 0.04-0.36 aaql=582) BASOPHILS ABSOLUTE COUNT (BEAKER) (test 0.05 K/ L 0.01-0.08 alab=194) IMMATURE GRANULOCYTES-RELATIVE PERCENT (BEAKER) 1 % 0-1 (test nuij=8074) POCT-GLUCOSE [id number] 21:08:00 Test Item Value Reference Range Comments POC-GLUCOSE METER (BEAKER) 114 mg/dL 70-110 TESTED AT [address] (test eqrw=7699) [facility] [address] POCT-GLUCOSE [id number] 17:08:00 Test Item Value Reference Range Comments POC-GLUCOSE METER (BEAKER) 157 mg/dL 70-110 TESTED AT [address] (test wayd=1207) [facility] [address] POCT-GLUCOSE [id number] 12:38:00 Test Item Value Reference Range Comments POC-GLUCOSE METER (BEAKER) 133 mg/dL 70-110 TESTED AT [address] (test qdri=3144) [facility] [address] POCT-GLUCOSE [id number] 07:47:00 Test Item Value Reference Range Comments POC-GLUCOSE METER (BEAKER) 138 mg/dL 70-[address] [facility] [address] (test jrji=6850) [place] [address] CALCIUM, [id number] 07:14:00 Test Item Value Reference Range Comments CALCIUM IONIZED (BEAKER) (test ipwi=194) 1.14 mmol/L 1.12-1.27 PH, BLOOD (BEAKER) (test ieua=2764) 7.39 [id number] 06:54:00 Test Item Value Reference Range Comments PHOSPHORUS (BEAKER) (test rnhm=353) 3.4 mg/dL 2.3-4.7 [id number] 06:54:00 Test Item Value Reference Range Comments MAGNESIUM (BEAKER) (test jpyb=116) 1.8 mg/dL 1.6-2.6 BASIC METABOLIC [id number] 06:54:00 Test Item Value Reference Range Comments SODIUM (BEAKER) (test 145 meq/L 136-145 nujx=273) POTASSIUM (BEAKER) (test 4.0 meq/L 3.5-5.1 xslp=849) CHLORIDE (BEAKER) (test 111 meq/L 98-107 gamj=261) CO2 (BEAKER) (test 29 meq/L 22-29 sfmr=643) BLOOD UREA NITROGEN 27 mg/dL 7-21 (BEAKER) (test uhfj=783) CREATININE (BEAKER) (test 1.69 mg/dL 0.57-1.25 rmry=884) GLUCOSE RANDOM (BEAKER) 131 mg/dL 70-105 (test ycgc=918) CALCIUM (BEAKER) (test 8.6 mg/dL 8.4-10.2 eoza=464) EGFR (BEAKER) (test 30 mL/min/1.73 sq m ESTIMATED GFR IS NOT opon=1781) ACCURATE CREATININE CLEARANCE IN PREDICTING GLOMERULAR FILTRATION RATE. ESTIMATED GFR IS NOT APPLICABLE FOR DIALYSIS PATIENTS. ANAEROBIC [id number] 06:34:00 Test Item Value Reference Range Comments CULTURE (BEAKER) (test 3+ Anaerobic gram positive jskz=0185) cocciNon-viable for identification CBC W/PLT COUNT & AUTO [id number] 06:25:00 Test Item Value Reference Range Comments WHITE BLOOD CELL COUNT (BEAKER) (test hexs=862) 7.1 K/ L 3.5-10.5 RED BLOOD CELL COUNT (BEAKER) (test wrzu=207) 2.70 M/ L 3.93-5.22 HEMOGLOBIN (BEAKER) (test mseq=413) 7.8 GM/DL 11.2-15.7 HEMATOCRIT (BEAKER) (test jjfm=884) 25.8 % 34.1-44.9 MEAN CORPUSCULAR VOLUME (BEAKER) (test trxp=844) 95.6 fL 79.4-94.8 MEAN CORPUSCULAR HEMOGLOBIN (BEAKER) (test 28.9 pg 25.6-32.2 lsyn=202) MEAN CORPUSCULAR HEMOGLOBIN CONC (BEAKER) (test 30.2 GM/DL 32.2-35.5 bqpr=997) RED CELL DISTRIBUTION WIDTH (BEAKER) (test 18.2 % 11.7-14.4 bosk=594) PLATELET COUNT (BEAKER) (test ctms=759) 421 K/CU MM 150-450 MEAN PLATELET VOLUME (BEAKER) (test zyrr=722) 10.5 fL 9.4-12.3 NUCLEATED RED BLOOD CELLS (BEAKER) (test 0 /100 WBC 0-0 uwru=035) NEUTROPHILS RELATIVE PERCENT (BEAKER) (test 55 % chtb=390) LYMPHOCYTES RELATIVE PERCENT (BEAKER) (test 30 % jiss=201) MONOCYTES RELATIVE PERCENT (BEAKER) (test 8 % ahvq=073) EOSINOPHILS RELATIVE PERCENT (BEAKER) (test 6 % mlzj=265) BASOPHILS RELATIVE PERCENT (BEAKER) (test 1 % rzst=441) NEUTROPHILS ABSOLUTE COUNT (BEAKER) (test 3.84 K/ L 1.56-6.13 eebi=631) LYMPHOCYTES ABSOLUTE COUNT (BEAKER) (test 2.12 K/ L 1.18-3.74 lepy=906) MONOCYTES ABSOLUTE COUNT (BEAKER) (test 0.56 K/ L 0.24-0.36 hxzd=624) EOSINOPHILS ABSOLUTE COUNT (BEAKER) (test 0.39 K/ L 0.04-0.36 pnuf=050) BASOPHILS ABSOLUTE COUNT (BEAKER) (test 0.04 K/ L 0.01-0.08 sahr=600) IMMATURE GRANULOCYTES-RELATIVE PERCENT (BEAKER) 1 % 0-1 (test vkef=6426) ANAEROBIC [id number] 04:27:00 Test Item Value Reference Range Comments CULTURE (BEAKER) (test hhxi=8060) No anaerobes isolated POCT-GLUCOSE [id number] 02:38:00 Test Item Value Reference Range Comments POC-GLUCOSE METER (BEAKER) 175 mg/dL 70-110 TESTED AT [address] (test pnid=6784) [facility] [address] POCT-GLUCOSE [id number] 21:30:00 Test Item Value Reference Range Comments POC-GLUCOSE METER (BEAKER) 174 mg/dL 70-110 TESTED AT [address] (test svlt=1642) [facility] [address] POCT-GLUCOSE [id number] 16:29:00 Test Item Value Reference Range Comments POC-GLUCOSE METER (BEAKER) 120 mg/dL 70-110 TESTED AT [address] (test dbpu=2480) [facility] [address] POCT-GLUCOSE [id number] 15:10:00 Test Item Value Reference Range Comments POC-GLUCOSE METER (BEAKER) 86 mg/dL 70-110 TESTED AT [address] (test eiie=9622) [facility] [address] POCT-GLUCOSE [id number] 08:25:00 Test Item Value Reference Range Comments POC-GLUCOSE METER (BEAKER) 127 mg/dL 70-110 TESTED AT [address] (test kmkb=2002) [place] [id number] SURGICALLY OBTAINED CULTURE + GRAM [id number] 08:10:00 Test Item Value Reference Range Comments CULTURE (BEAKER) (test oftz=7527) No growth GRAM STAIN RESULT (BEAKER) (test <1+ WBCs udii=1598) GRAM STAIN RESULT (BEAKER) (test No organisms seen puxc=67380) [id number] 08:08:00 Test Item Value Reference Range Comments PHOSPHORUS (BEAKER) (test fghs=509) 3.6 mg/dL 2.3-4.7 [id number] 08:08:00 Test Item Value Reference Range Comments MAGNESIUM (BEAKER) (test hngp=197) 1.5 mg/dL 1.6-2.6 BASIC METABOLIC [id number] 08:08:00 Test Item Value Reference Range Comments SODIUM (BEAKER) (test 146 meq/L 136-145 jpps=278) POTASSIUM (BEAKER) (test 4.1 meq/L 3.5-5.1 xsyj=729) CHLORIDE (BEAKER) (test 112 meq/L 98-107 titd=122) CO2 (BEAKER) (test 25 meq/L 22-29 iobw=613) BLOOD UREA NITROGEN 27 mg/dL 7-21 (BEAKER) (test nous=283) CREATININE (BEAKER) (test 1.71 mg/dL 0.57-1.25 iljs=102) GLUCOSE RANDOM (BEAKER) 114 mg/dL 70-105 (test nqeh=193) CALCIUM (BEAKER) (test 8.5 mg/dL 8.4-10.2 yuae=794) EGFR (BEAKER) (test 30 mL/min/1.73 sq m ESTIMATED GFR IS NOT thwe=2144) ACCURATE CREATININE CLEARANCE IN PREDICTING GLOMERULAR FILTRATION RATE. ESTIMATED GFR IS NOT APPLICABLE FOR DIALYSIS PATIENTS. CBC W/PLT COUNT & AUTO [id number] 07:07:00 Test Item Value Reference Range Comments WHITE BLOOD CELL COUNT (BEAKER) (test tokh=006) 7.4 K/ L 3.5-10.5 RED BLOOD CELL COUNT (BEAKER) (test vtyo=123) 2.64 M/ L 3.93-5.22 HEMOGLOBIN (BEAKER) (test rsqa=620) 7.4 GM/DL 11.2-15.7 HEMATOCRIT (BEAKER) (test zopt=698) 25.3 % 34.1-44.9 MEAN CORPUSCULAR VOLUME (BEAKER) (test bvts=636) 95.8 fL 79.4-94.8 MEAN CORPUSCULAR HEMOGLOBIN (BEAKER) (test 28.0 pg 25.6-32.2 qhbx=455) MEAN CORPUSCULAR HEMOGLOBIN CONC (BEAKER) (test 29.2 GM/DL 32.2-35.5 uree=796) RED CELL DISTRIBUTION WIDTH (BEAKER) (test 17.8 % 11.7-14.4 uoqq=497) PLATELET COUNT (BEAKER) (test teyx=932) 456 K/CU MM 150-450 MEAN PLATELET VOLUME (BEAKER) (test dycv=319) 10.5 fL 9.4-12.3 NUCLEATED RED BLOOD CELLS (BEAKER) (test 0 /100 WBC 0-0 imby=784) NEUTROPHILS RELATIVE PERCENT (BEAKER) (test 59 % jpbg=506) LYMPHOCYTES RELATIVE PERCENT (BEAKER) (test 27 % hhvc=144) MONOCYTES RELATIVE PERCENT (BEAKER) (test 7 % sixb=370) EOSINOPHILS RELATIVE PERCENT (BEAKER) (test 5 % pvnu=204) BASOPHILS RELATIVE PERCENT (BEAKER) (test 1 % xbrj=212) NEUTROPHILS ABSOLUTE COUNT (BEAKER) (test 4.40 K/ L 1.56-6.13 vxvs=038) LYMPHOCYTES ABSOLUTE COUNT (BEAKER) (test 1.97 K/ L 1.18-3.74 oryp=947) MONOCYTES ABSOLUTE COUNT (BEAKER) (test 0.52 K/ L 0.24-0.36 mbpy=581) EOSINOPHILS ABSOLUTE COUNT (BEAKER) (test 0.37 K/ L 0.04-0.36 ypzm=818) BASOPHILS ABSOLUTE COUNT (BEAKER) (test 0.05 K/ L 0.01-0.08 kpiw=767) IMMATURE GRANULOCYTES-RELATIVE PERCENT (BEAKER) 2 % 0-1 (test vnkp=1871) POCT-GLUCOSE [id number] 06:58:00 Test Item Value Reference Range Comments POC-GLUCOSE METER (BEAKER) 118 mg/dL 70-110 TESTED AT [address] (test vlvw=1831) [facility] [address] CALCIUM, [id number] 06:49:00 Test Item Value Reference Range Comments CALCIUM IONIZED (BEAKER) (test xayy=995) 1.13 mmol/L 1.12-1.27 PH, BLOOD (BEAKER) (test fvls=8137) 7.39 POCT-GLUCOSE [id number] 22:47:00 Test Item Value Reference Range Comments POC-GLUCOSE METER (BEAKER) 123 mg/dL 70-110 TESTED AT [address] (test dqxn=3511) [facility] [address] POCT-GLUCOSE [id number] 22:14:00 Test Item Value Reference Range Comments POC-GLUCOSE METER (BEAKER) 121 mg/dL 70-110 TESTED AT [address] (test yjtf=6566) [facility] [address] POCT-GLUCOSE [id number] 17:21:00 Test Item Value Reference Range Comments POC-GLUCOSE METER (BEAKER) 184 mg/dL 70-[address] [facility] [address] [facility] CENTER (test vkqr=7918) [facility] [address] POCT-GLUCOSE [id number] 14:14:00 Test Item Value Reference Range Comments POC-GLUCOSE METER (BEAKER) 120 mg/dL 70-110 TESTED AT [address] (test oplo=7967) [facility] [address] POCT-GLUCOSE [id number] 13:11:00 Test Item Value Reference Range Comments POC-GLUCOSE METER (BEAKER) 65 mg/dL 70-110 Notified SUNI SMITH/TESTED AT [facility] (test xkgo=5047) [address] [place] [address] POCT-GLUCOSE [id number] 12:44:00 Test Item Value Reference Range Comments POC-GLUCOSE METER (BEAKER) 51 mg/dL 70-110 Notified SUNI SMITH/TESTED AT [facility] (test itud=2310) [address] [place] [address] TISSUE [id number] 10:13:00Surgical Pathology Report Case: [id number] Authorizing Provider: Fernando Green MD Collected: 04/20/2017 1200 Ordering Location: [facility] Received: 04/20/2017 1355 SERVICES Pathologist: Ja Wheatley MD Specimen: Soft Tissue, Other, TISSUE FROM LEFT HEEL BONE AND SOFT TISSUE, LEFT HEEL, BIOPSY: - ACUTE OSTEOMYELITIS - GRANULATION TISSUE WITH ACUTE AND CHRONIC INFLAMMATION Signing Pathologist Direct Phone Line: [phone] of right foot Tissue from left heelThe specimen is received in a fluidless container labeled with the patient's information and labeled "tissue from left heel" and consists of a segment of bone and soft tissue measuring 2 x 1 x 0.4 cm. Thespecimen is sectioned and submitted entirely in A1 for decalcification. CG/ew Bone section show marrow with acute inflammation cells. There is small fragment of granulation tissue with acute and chronic inflammation.BASIC METABOLIC [id number] 07:40:00 Test Item Value Reference Range Comments SODIUM (BEAKER) (test 146 meq/L 136-145 hchf=955) POTASSIUM (BEAKER) (test 4.2 meq/L 3.5-5.1 dexd=494) CHLORIDE (BEAKER) (test 116 meq/L 98-107 ijgw=872) CO2 (BEAKER) (test 23 meq/L 22-29 rtju=418) BLOOD UREA NITROGEN 24 mg/dL 7-21 (BEAKER) (test nxnz=051) CREATININE (BEAKER) (test 1.76 mg/dL 0.57-1.25 pruu=006) GLUCOSE RANDOM (BEAKER) 90 mg/dL 70-105 (test lmyl=623) CALCIUM (BEAKER) (test 8.4 mg/dL 8.4-10.2 zvpw=027) EGFR (BEAKER) (test 29 mL/min/1.73 sq m ESTIMATED GFR IS NOT flby=0557) ACCURATE CREATININE CLEARANCE IN PREDICTING GLOMERULAR FILTRATION RATE. ESTIMATED GFR IS NOT APPLICABLE FOR DIALYSIS PATIENTS. [id number] 07:36:00 Test Item Value Reference Range Comments PHOSPHORUS (BEAKER) (test tcjp=224) 3.1 mg/dL 2.3-4.7 [id number] 07:36:00 Test Item Value Reference Range Comments MAGNESIUM (BEAKER) (test zsqv=154) 1.8 mg/dL 1.6-2.6 B-TYPE NATRIURETIC FACTOR (BNP)2017-04-27 07:23:00 Test Item Value Reference Range Comments B-TYPE NATRIURETIC PEPTIDE (BEAKER) (test mzrz=215) 74 pg/mL 0-100 CALCIUM, [id number] 07:14:00 Test Item Value Reference Range Comments CALCIUM IONIZED (BEAKER) (test dxkx=029) 1.08 mmol/L 1.12-1.27 PH, BLOOD (BEAKER) (test ojdj=3698) 7.47 CBC W/PLT COUNT & AUTO [id number] 06:46:00 Test Item Value Reference Range Comments WHITE BLOOD CELL COUNT (BEAKER) (test juis=948) 10.0 K/ L 3.5-10.5 RED BLOOD CELL COUNT (BEAKER) (test azph=380) 2.89 M/ L 3.93-5.22 HEMOGLOBIN (BEAKER) (test umxo=735) 8.1 GM/DL 11.2-15.7 HEMATOCRIT (BEAKER) (test hbfw=555) 27.8 % 34.1-44.9 MEAN CORPUSCULAR VOLUME (BEAKER) (test iaki=203) 96.2 fL 79.4-94.8 MEAN CORPUSCULAR HEMOGLOBIN (BEAKER) (test 28.0 pg 25.6-32.2 dwjy=265) MEAN CORPUSCULAR HEMOGLOBIN CONC (BEAKER) (test 29.1 GM/DL 32.2-35.5 jaoi=147) RED CELL DISTRIBUTION WIDTH (BEAKER) (test 18.1 % 11.7-14.4 goik=349) PLATELET COUNT (BEAKER) (test dtxf=301) 469 K/CU MM 150-450 MEAN PLATELET VOLUME (BEAKER) (test bbmb=375) 10.0 fL 9.4-12.3 NUCLEATED RED BLOOD CELLS (BEAKER) (test 0 /100 WBC 0-0 bfdj=203) NEUTROPHILS RELATIVE PERCENT (BEAKER) (test 65 % xqcw=445) LYMPHOCYTES RELATIVE PERCENT (BEAKER) (test 23 % ebqt=082) MONOCYTES RELATIVE PERCENT (BEAKER) (test 7 % avou=192) EOSINOPHILS RELATIVE PERCENT (BEAKER) (test 3 % lylz=448) BASOPHILS RELATIVE PERCENT (BEAKER) (test 0 % snho=900) NEUTROPHILS ABSOLUTE COUNT (BEAKER) (test 6.53 K/ L 1.56-6.13 azfl=074) LYMPHOCYTES ABSOLUTE COUNT (BEAKER) (test 2.34 K/ L 1.18-3.74 kiwx=312) MONOCYTES ABSOLUTE COUNT (BEAKER) (test 0.66 K/ L 0.24-0.36 bhjn=445) EOSINOPHILS ABSOLUTE COUNT (BEAKER) (test 0.31 K/ L 0.04-0.36 qsjx=124) BASOPHILS ABSOLUTE COUNT (BEAKER) (test 0.04 K/ L 0.01-0.08 baab=050) IMMATURE GRANULOCYTES-RELATIVE PERCENT (BEAKER) 2 % 0-1 (test pckl=3471) POCT-GLUCOSE [id number] 06:34:00 Test Item Value Reference Range Comments POC-GLUCOSE METER (BEAKER) 97 mg/dL 70-[address] [facility] [address] [facility] (test mglm=5738) [facility] [address] POCT-GLUCOSE [id number] 02:07:00 Test Item Value Reference Range Comments POC-GLUCOSE METER (BEAKER) 191 mg/dL 70-110 TESTED AT [address] (test fgcg=6127) [place] [address] POCT-GLUCOSE [id number] 23:38:00 Test Item Value Reference Range Comments POC-GLUCOSE METER (BEAKER) 183 mg/dL 70-110 TESTED AT [address] (test pqzb=8467) [place] [address] POCT-GLUCOSE [id number] 21:27:00 Test Item Value Reference Range Comments POC-GLUCOSE METER (BEAKER) 91 mg/dL 70-110 TESTED AT [address] (test zaqs=7431) [place] [address] POCT-GLUCOSE [id number] 17:35:00 Test Item Value Reference Range Comments POC-GLUCOSE METER (BEAKER) 127 mg/dL 70-110 TESTED AT [address] (test dlgw=5296) [place] [address] POCT-GLUCOSE [id number] 12:38:00 Test Item Value Reference Range Comments POC-GLUCOSE METER (BEAKER) 213 mg/dL 70-110 TESTED AT [address] (test diqw=6627) [place] [address] SURGICALLY OBTAINED CULTURE + GRAM [id number] 11:12:00 Test Item Value Reference Range Comments CULTURE (BEAKER) (test gnnp=4715) Clindamycin (test code=10) Erythromycin (test code=4) Levofloxacin (test code=22) Linezolid (test code=40) Nitrofurantoin (test code=23) Oxacillin (test code=14) Rifampin (test code=43) Tetracycline (test code=2) Trimethoprim + Sulfamethoxazole (test code=47) Vancomycin (test code=13) CULTURE (BEAKER) (test 3+ Coagulase negative fdqd=5220) Staphylococcus CULTURE (BEAKER) (test 2+ Diphtheroid gusr=8796) CULTURE (BEAKER) (test 3+ Gram positive rodsof lenx=3978) a third type* - No further workup per Infectious Disease physician CULTURE (BEAKER) (test 3+ Diphtheroidof a bpiu=7419) second type GRAM STAIN RESULT <1+ WBCs (BEAKER) (test ayax=1505) GRAM STAIN RESULT 1+ gram positive (BEAKER) (test cocci in chains and sghh=856027) pairs GRAM STAIN RESULT 1+ gram variable (BEAKER) (test coccobacilli bidz=250075) POCT-GLUCOSE [id number] 08:00:00 Test Item Value Reference Range Comments POC-GLUCOSE METER (BEAKER) 199 mg/dL 70-[address] [facility] [address] [facility] (test mwjs=8279) [facility] [address] POCT-GLUCOSE [id number] 07:23:00 Test Item Value Reference Range Comments POC-GLUCOSE METER (BEAKER) 232 mg/dL 70-110 TESTED AT [address] (test uxjj=2585) [facility] [address] CALCIUM, [id number] 07:20:00 Test Item Value Reference Range Comments CALCIUM IONIZED (BEAKER) (test myso=098) 1.13 mmol/L 1.12-1.27 PH, BLOOD (BEAKER) (test hypb=9163) 7.37 VANCOMYCIN LEVEL, [id number] 05:40:00 Test Item Value Reference Range Comments VANCOMYCIN TROUGH (BEAKER) (test blku=245) 23.4 ug/mL 10.0-20.0 BASIC METABOLIC [id number] 05:32:00 Test Item Value Reference Range Comments SODIUM (BEAKER) (test 141 meq/L 136-145 diif=424) POTASSIUM (BEAKER) (test 4.7 meq/L 3.5-5.1 dyxa=983) CHLORIDE (BEAKER) (test 113 meq/L 98-107 juwm=600) CO2 (BEAKER) (test 23 meq/L 22-29 xnsg=529) BLOOD UREA NITROGEN 21 mg/dL 7-21 (BEAKER) (test ovaa=289) CREATININE (BEAKER) (test 1.73 mg/dL 0.57-1.25 sqoo=276) GLUCOSE RANDOM (BEAKER) 229 mg/dL 70-105 (test tbbp=305) CALCIUM (BEAKER) (test 8.2 mg/dL 8.4-10.2 hjyw=284) EGFR (BEAKER) (test 29 mL/min/1.73 sq m ESTIMATED GFR IS NOT lcwo=0619) ACCURATE CREATININE CLEARANCE IN PREDICTING GLOMERULAR FILTRATION RATE. ESTIMATED GFR IS NOT APPLICABLE FOR DIALYSIS PATIENTS. [id number] 05:30:00 Test Item Value Reference Range Comments PHOSPHORUS (BEAKER) (test kzjp=780) 3.1 mg/dL 2.3-4.7 [id number] 05:30:00 Test Item Value Reference Range Comments MAGNESIUM (BEAKER) (test ltfr=257) 1.9 mg/dL 1.6-2.6 CBC W/PLT COUNT & AUTO [id number] 05:10:00 Test Item Value Reference Range Comments WHITE BLOOD CELL COUNT (BEAKER) (test irvx=647) 13.4 K/ L 3.5-10.5 RED BLOOD CELL COUNT (BEAKER) (test vuya=434) 2.74 M/ L 3.93-5.22 HEMOGLOBIN (BEAKER) (test moxx=808) 7.6 GM/DL 11.2-15.7 HEMATOCRIT (BEAKER) (test nqwr=560) 25.9 % 34.1-44.9 MEAN CORPUSCULAR VOLUME (BEAKER) (test rgke=840) 94.5 fL 79.4-94.8 MEAN CORPUSCULAR HEMOGLOBIN (BEAKER) (test 27.7 pg 25.6-32.2 xlah=284) MEAN CORPUSCULAR HEMOGLOBIN CONC (BEAKER) (test 29.3 GM/DL 32.2-35.5 xiwj=048) RED CELL DISTRIBUTION WIDTH (BEAKER) (test 17.5 % 11.7-14.4 wrcs=858) PLATELET COUNT (BEAKER) (test wsld=062) 464 K/CU MM 150-450 MEAN PLATELET VOLUME (BEAKER) (test aprt=848) 10.1 fL 9.4-12.3 NUCLEATED RED BLOOD CELLS (BEAKER) (test 0 /100 WBC 0-0 pitm=738) NEUTROPHILS RELATIVE PERCENT (BEAKER) (test 88 % zjds=442) LYMPHOCYTES RELATIVE PERCENT (BEAKER) (test 8 % kfcb=961) MONOCYTES RELATIVE PERCENT (BEAKER) (test 3 % wszg=106) EOSINOPHILS RELATIVE PERCENT (BEAKER) (test 0 % fvhd=083) BASOPHILS RELATIVE PERCENT (BEAKER) (test 0 % aypz=327) NEUTROPHILS ABSOLUTE COUNT (BEAKER) (test 11.74 K/ L 1.56-6.13 dpzr=619) LYMPHOCYTES ABSOLUTE COUNT (BEAKER) (test 1.02 K/ L 1.18-3.74 msht=664) MONOCYTES ABSOLUTE COUNT (BEAKER) (test 0.33 K/ L 0.24-0.36 ljjg=663) EOSINOPHILS ABSOLUTE COUNT (BEAKER) (test 0.00 K/ L 0.04-0.36 tlxv=025) BASOPHILS ABSOLUTE COUNT (BEAKER) (test 0.03 K/ L 0.01-0.08 wpfl=641) IMMATURE GRANULOCYTES-RELATIVE PERCENT (BEAKER) 2 % 0-1 (test siup=4983) POCT-GLUCOSE [id number] 00:32:00 Test Item Value Reference Range Comments POC-GLUCOSE METER (BEAKER) 230 mg/dL 70-110 TESTED AT [address] (test jjge=5800) [place] [address] POCT-GLUCOSE [id number] 22:31:00 Test Item Value Reference Range Comments POC-GLUCOSE METER (BEAKER) 182 mg/dL 70-110 TESTED AT [address] (test sgbp=7555) [place] [address] POCT-GLUCOSE [id number] 17:37:00 Test Item Value Reference Range Comments POC-GLUCOSE METER (BEAKER) 134 mg/dL 70-110 TESTED AT [address] (test iaxg=9282) [place] [address] POCT-GLUCOSE [id number] 14:59:00 Test Item Value Reference Range Comments POC-GLUCOSE METER (BEAKER) 107 mg/dL 70-110 TESTED AT [address] (test buok=3683) [place] [address] POCT-GLUCOSE [id number] 12:10:00 Test Item Value Reference Range Comments POC-GLUCOSE METER (BEAKER) 107 mg/dL 70-110 TESTED AT [address] (test vwhb=4624) [place] [address] POCT-GLUCOSE [id number] 08:32:00 Test Item Value Reference Range Comments POC-GLUCOSE METER (BEAKER) 126 mg/dL 70-110 TESTED AT [address] (test ykoo=5953) [place] [address] [id number] 07:33:00 Test Item Value Reference Range Comments PHOSPHORUS (BEAKER) (test xjys=357) 2.2 mg/dL 2.3-4.7 [id number] 07:33:00 Test Item Value Reference Range Comments MAGNESIUM (BEAKER) (test oadm=150) 1.5 mg/dL 1.6-2.6 BASIC METABOLIC [id number] 07:33:00 Test Item Value Reference Range Comments SODIUM (BEAKER) (test 145 meq/L 136-145 cghf=085) POTASSIUM (BEAKER) (test 3.4 meq/L 3.5-5.1 szma=799) CHLORIDE (BEAKER) (test 114 meq/L 98-107 vrjc=631) CO2 (BEAKER) (test 23 meq/L 22-29 nnvr=260) BLOOD UREA NITROGEN 18 mg/dL 7-21 (BEAKER) (test dhil=946) CREATININE (BEAKER) (test 1.58 mg/dL 0.57-1.25 wlgv=081) GLUCOSE RANDOM (BEAKER) 122 mg/dL 70-105 (test slqn=384) CALCIUM (BEAKER) (test 8.2 mg/dL 8.4-10.2 avel=774) EGFR (BEAKER) (test 33 mL/min/1.73 sq m ESTIMATED GFR IS NOT kzqg=7029) ACCURATE CREATININE CLEARANCE IN PREDICTING GLOMERULAR FILTRATION RATE. ESTIMATED GFR IS NOT APPLICABLE FOR DIALYSIS PATIENTS. CALCIUM, [id number] 07:15:00 Test Item Value Reference Range Comments CALCIUM IONIZED (BEAKER) (test goxf=232) 1.11 mmol/L 1.12-1.27 PH, BLOOD (BEAKER) (test zdzh=2029) 7.39 CBC W/PLT COUNT & AUTO [id number] 06:23:00 Test Item Value Reference Range Comments WHITE BLOOD CELL COUNT (BEAKER) (test iwuw=405) 9.1 K/ L 3.5-10.5 RED BLOOD CELL COUNT (BEAKER) (test ewfr=072) 2.65 M/ L 3.93-5.22 HEMOGLOBIN (BEAKER) (test ethh=852) 7.5 GM/DL 11.2-15.7 HEMATOCRIT (BEAKER) (test xzwc=088) 25.1 % 34.1-44.9 MEAN CORPUSCULAR VOLUME (BEAKER) (test cint=092) 94.7 fL 79.4-94.8 MEAN CORPUSCULAR HEMOGLOBIN (BEAKER) (test 28.3 pg 25.6-32.2 ftup=255) MEAN CORPUSCULAR HEMOGLOBIN CONC (BEAKER) (test 29.9 GM/DL 32.2-35.5 hwnq=093) RED CELL DISTRIBUTION WIDTH (BEAKER) (test 17.2 % 11.7-14.4 hucc=689) PLATELET COUNT (BEAKER) (test ntpq=464) 419 K/CU MM 150-450 MEAN PLATELET VOLUME (BEAKER) (test vvax=361) 9.7 fL 9.4-12.3 NUCLEATED RED BLOOD CELLS (BEAKER) (test 0 /100 WBC 0-0 czom=823) NEUTROPHILS RELATIVE PERCENT (BEAKER) (test 66 % bajp=160) LYMPHOCYTES RELATIVE PERCENT (BEAKER) (test 19 % rttz=638) MONOCYTES RELATIVE PERCENT (BEAKER) (test 6 % ebla=618) EOSINOPHILS RELATIVE PERCENT (BEAKER) (test 5 % iuww=148) BASOPHILS RELATIVE PERCENT (BEAKER) (test 0 % sjty=228) NEUTROPHILS ABSOLUTE COUNT (BEAKER) (test 6.03 K/ L 1.56-6.13 kshu=831) LYMPHOCYTES ABSOLUTE COUNT (BEAKER) (test 1.71 K/ L 1.18-3.74 iils=360) MONOCYTES ABSOLUTE COUNT (BEAKER) (test 0.54 K/ L 0.24-0.36 mmun=678) EOSINOPHILS ABSOLUTE COUNT (BEAKER) (test 0.43 K/ L 0.04-0.36 jwbp=744) BASOPHILS ABSOLUTE COUNT (BEAKER) (test 0.04 K/ L 0.01-0.08 ward=892) IMMATURE GRANULOCYTES-RELATIVE PERCENT (BEAKER) 4 % 0-1 (test fcdz=5302) POCT-GLUCOSE [id number] 05:38:00 Test Item Value Reference Range Comments POC-GLUCOSE METER (BEAKER) 146 mg/dL 70-110 TESTED AT [address] (test wvyh=9050) [facility] [address] POCT-GLUCOSE [id number] 01:45:00 Test Item Value Reference Range Comments POC-GLUCOSE METER (BEAKER) 169 mg/dL 70-110 TESTED AT [address] (test mbzh=0352) [facility] [address] POCT-GLUCOSE [id number] 22:36:00 Test Item Value Reference Range Comments POC-GLUCOSE METER (BEAKER) 186 mg/dL 70-[address] [facility] [address] [facility] (test ease=2454) [facility] [address] POCT-GLUCOSE [id number] 17:18:00 Test Item Value Reference Range Comments POC-GLUCOSE METER (BEAKER) 174 mg/dL 70-[address] [facility] [address] [facility] (test hjze=5374) [facility] [address] ANG, CV ACCESS, [id number] 16:03:00Power PICC could be used Call Octavio León MD [phone] for questions Reason for exam:->Place a tunneled internal jugular central line for IV antibioticsFINAL REPORT History: Need for long-term central IV access. Procedure: Following informed written consent, the patient's right cervical region and anterior chest wall were prepped and draped in the usual sterile manner. Maximum sterile barrier techniques were utilized. 2% lidocaine was given locally for anesthesia. No conscious sedation was administered. Vital signs were monitored and remained stable. Conscious sedation and continuous patient monitoring were performed by the attending radiologist and a registered nurse for approximately 20 minutes during the procedure. Access was gained to the right internal jugular vein using ultrasound guidance and a micropuncture needle. A subcutaneous tunnel was created in the anterior chest wall. A 25 cm power line central venous catheter was tunneled and following serial dilatation of the tract, placed through a peel-away sheath and into position within the superior vena cava under fluoroscopic control. The catheter was secured to the skin using 2-0 Prolene suture. The small incision site was closed using 2-0 chromic suture. There were no immediate complications. Findings: Spot radiograph following catheter insertion demonstrates the right internal jugular tunneled central venous catheter to lie in expected position with its tip in the superior vena cava. No pneumothorax. Ultrasound image of the right internal jugular vein prior to catheter placement shows a patent and compressible vein without evidence for thrombosis. Ultrasound image of the right internal jugular vein was obtained and archived on PACS. Impression: 1. Successful uncomplicated placement of a tunneled right internal jugular tunneled central venous catheter. Fluoroscopy time: 1.0 minsEstimated dose reported as (Ka,r): 33 mGy Signed: Doug Cota MDReportVerified Date/Time: 04/24/2017 16:03:26 Reading Location: [facility] P048 Angio Body Reading Room TISSUE [id number] 13:23: 00Surgical Pathology Report Case: [id number] Authorizing Provider: Peter Jeronimo MD Collected : 04/20/2017 1737 Ordering Location: [address] Received: 04/23/2017 0750 Service Pathologist: Marvin Abdullahi MD Specimen: Polyp, Gastric, gastric polyp GASTRIC POLYP,BIOPSY- FRAGMENTS OF HYPERPLASTIC POLYP- NO INTESTINAL METAPLASIA, NO DYSPLASIA AND NO MALIGNANCY IDENTIFIED- NO HELICOBACTER PYLORI ORGANISMS IDENTIFIED Signing Pathologist Direct Phone Line: [phone] signed by Marvin Abdullahi MD on 04/24/2017 at 1:23 [id number] polyp The specimen is received in a formalin- filled container and labeled with the patient's information and labeled " gastric polyp" and consists of three jackson-red polyps measuring 1.8 and 0.9 cm. All are inked/ Sectioned and submitted entirely as follows. A1, one polyp bisected; A2, one polyp bisected; A3 and A4, largest polyp sectioned. CG/pl Sections reveal fragments of hyperplastic polyp with glands showing irregularity , tortuosity and foveolar hyperplasia. Granulation tissue, vascular congestion and erosion is seen in focal areas. Lamina propria has mild acute chronic inflammation.No intestinal metaplasia is identified. No active gastritis is seen. No Helicobacter pylori organisms are identified on H&E stain. Dysplasia and malignancy are not seen.POCT-GLUCOSE [id number] 12:17:00 Test Item Value Reference Range Comments POC-GLUCOSE METER (BEAKER) 170 mg/dL 70-[address] [facility] [address] (test gpvw=8485) [facility] [address] BLOOD [id number] 11:00:00 Test Item Value Reference Range Comments CULTURE (BEAKER) (test rwcx=1522) No growth in 5 days BLOOD [id number] 11:00:00 Test Item Value Reference Range Comments CULTURE (BEAKER) (test evqk=1306) No growth in 5 days POCT-GLUCOSE [id number] 07:46:00 Test Item Value Reference Range Comments POC-GLUCOSE METER (BEAKER) 175 mg/dL 70-[address] [facility] [address] (test ukfv=6962) [place] [address] B-TYPE NATRIURETIC FACTOR (BNP)2017-04-24 07:15:00 Test Item Value Reference Range Comments B-TYPE NATRIURETIC PEPTIDE (BEAKER) (test ttvn=316) 48 pg/mL 0-100 [id number] 07:14:00 Test Item Value Reference Range Comments PHOSPHORUS (BEAKER) (test lxay=131) 2.3 mg/dL 2.3-4.7 [id number] 07:14:00 Test Item Value Reference Range Comments MAGNESIUM (BEAKER) (test byqy=812) 1.5 mg/dL 1.6-2.6 BASIC METABOLIC [id number] 07:14:00 Test Item Value Reference Range Comments SODIUM (BEAKER) (test 145 meq/L 136-145 srsr=172) POTASSIUM (BEAKER) (test 3.4 meq/L 3.5-5.1 lkew=893) CHLORIDE (BEAKER) (test 114 meq/L 98-107 dyvi=093) CO2 (BEAKER) (test 23 meq/L 22-29 ilqa=687) BLOOD UREA NITROGEN 19 mg/dL 7-21 (BEAKER) (test fzju=809) CREATININE (BEAKER) (test 1.68 mg/dL 0.57-1.25 zcyn=395) GLUCOSE RANDOM (BEAKER) 172 mg/dL 70-105 (test ihhh=958) CALCIUM (BEAKER) (test 8.1 mg/dL 8.4-10.2 audu=209) EGFR (BEAKER) (test 30 mL/min/1.73 sq m ESTIMATED GFR IS NOT psjy=8556) ACCURATE CREATININE CLEARANCE IN PREDICTING GLOMERULAR FILTRATION RATE. ESTIMATED GFR IS NOT APPLICABLE FOR DIALYSIS PATIENTS. CALCIUM, [id number] 07:06:00 Test Item Value Reference Range Comments CALCIUM IONIZED (BEAKER) (test byqq=192) 1.10 mmol/L 1.12-1.27 PH, BLOOD (BEAKER) (test irel=3973) 7.38 CBC W/PLT COUNT & AUTO [id number] 06:48:00 Test Item Value Reference Range Comments WHITE BLOOD CELL COUNT (BEAKER) (test fenu=195) 8.6 K/ L 3.5-10.5 RED BLOOD CELL COUNT (BEAKER) (test efma=782) 2.72 M/ L 3.93-5.22 HEMOGLOBIN (BEAKER) (test vrir=582) 7.5 GM/DL 11.2-15.7 HEMATOCRIT (BEAKER) (test uljx=362) 25.5 % 34.1-44.9 MEAN CORPUSCULAR VOLUME (BEAKER) (test buzf=033) 93.8 fL 79.4-94.8 MEAN CORPUSCULAR HEMOGLOBIN (BEAKER) (test 27.6 pg 25.6-32.2 nqmw=839) MEAN CORPUSCULAR HEMOGLOBIN CONC (BEAKER) (test 29.4 GM/DL 32.2-35.5 npfp=724) RED CELL DISTRIBUTION WIDTH (BEAKER) (test 16.8 % 11.7-14.4 dpbv=845) PLATELET COUNT (BEAKER) (test wjmp=049) 429 K/CU MM 150-450 MEAN PLATELET VOLUME (BEAKER) (test pilg=181) 9.4 fL 9.4-12.3 NUCLEATED RED BLOOD CELLS (BEAKER) (test 0 /100 WBC 0-0 znbn=153) NEUTROPHILS RELATIVE PERCENT (BEAKER) (test 65 % hxqi=247) LYMPHOCYTES RELATIVE PERCENT (BEAKER) (test 20 % jthn=107) MONOCYTES RELATIVE PERCENT (BEAKER) (test 6 % gies=515) EOSINOPHILS RELATIVE PERCENT (BEAKER) (test 5 % tidd=310) BASOPHILS RELATIVE PERCENT (BEAKER) (test 1 % mjvo=621) NEUTROPHILS ABSOLUTE COUNT (BEAKER) (test 5.60 K/ L 1.56-6.13 djae=924) LYMPHOCYTES ABSOLUTE COUNT (BEAKER) (test 1.70 K/ L 1.18-3.74 kmgp=259) MONOCYTES ABSOLUTE COUNT (BEAKER) (test 0.47 K/ L 0.24-0.36 upys=661) EOSINOPHILS ABSOLUTE COUNT (BEAKER) (test 0.42 K/ L 0.04-0.36 ymsk=651) BASOPHILS ABSOLUTE COUNT (BEAKER) (test 0.05 K/ L 0.01-0.08 mhsf=639) IMMATURE GRANULOCYTES-RELATIVE PERCENT (BEAKER) 4 % 0-1 (test ylpy=2001) POCT-GLUCOSE [id number] 23:24:00 Test Item Value Reference Range Comments POC-GLUCOSE METER (BEAKER) 229 mg/dL 70-110 TESTED AT [address] (test bhzz=1359) [place] [id number] POCT-GLUCOSE [id number] 20:24:00 Test Item Value Reference Range Comments POC-GLUCOSE METER (BEAKER) 159 mg/dL 70-110 TESTED AT [address] (test yeqe=5797) [place] [id number] HEMOGLOBIN [id number] 20:07:00 Test Item Value Reference Range Comments HEMOGLOBIN A1C (BEAKER) (test ydqd=825) 11.2 % 4.3-6.1 POCT-GLUCOSE [id number] 11:43:00 Test Item Value Reference Range Comments POC-GLUCOSE METER (BEAKER) 167 mg/dL 70-110 TESTED AT [address] (test mlrb=7749) [place] [id number] CBC W/PLT COUNT & AUTO [id number] 07:45:00 Test Item Value Reference Range Comments WHITE BLOOD CELL COUNT (BEAKER) (test bctg=947) 7.6 K/ L 3.5-10.5 RED BLOOD CELL COUNT (BEAKER) (test xymr=791) 3.12 M/ L 3.93-5.22 HEMOGLOBIN (BEAKER) (test arnf=086) 8.9 GM/DL 11.2-15.7 HEMATOCRIT (BEAKER) (test piac=112) 28.9 % 34.1-44.9 MEAN CORPUSCULAR VOLUME (BEAKER) (test ckbv=636) 92.6 fL 79.4-94.8 MEAN CORPUSCULAR HEMOGLOBIN (BEAKER) (test 28.5 pg 25.6-32.2 hnfa=024) MEAN CORPUSCULAR HEMOGLOBIN CONC (BEAKER) (test 30.8 GM/DL 32.2-35.5 khcp=658) RED CELL DISTRIBUTION WIDTH (BEAKER) (test 16.5 % 11.7-14.4 jfgu=188) PLATELET COUNT (BEAKER) (test bukz=989) 379 K/CU MM 150-450 MEAN PLATELET VOLUME (BEAKER) (test iwre=712) 10.0 fL 9.4-12.3 NUCLEATED RED BLOOD CELLS (BEAKER) (test 0 /100 WBC 0-0 nprr=787) NEUTROPHILS RELATIVE PERCENT (BEAKER) (test 61 % mjjw=311) LYMPHOCYTES RELATIVE PERCENT (BEAKER) (test 23 % zuvo=996) MONOCYTES RELATIVE PERCENT (BEAKER) (test 5 % shwu=474) EOSINOPHILS RELATIVE PERCENT (BEAKER) (test 7 % wpmq=667) BASOPHILS RELATIVE PERCENT (BEAKER) (test 1 % dyih=436) NEUTROPHILS ABSOLUTE COUNT (BEAKER) (test 4.63 K/ L 1.56-6.13 xxno=137) LYMPHOCYTES ABSOLUTE COUNT (BEAKER) (test 1.78 K/ L 1.18-3.74 xams=130) MONOCYTES ABSOLUTE COUNT (BEAKER) (test 0.37 K/ L 0.24-0.36 vawg=809) EOSINOPHILS ABSOLUTE COUNT (BEAKER) (test 0.54 K/ L 0.04-0.36 kglo=100) BASOPHILS ABSOLUTE COUNT (BEAKER) (test 0.05 K/ L 0.01-0.08 oifr=478) IMMATURE GRANULOCYTES-RELATIVE PERCENT (BEAKER) 3 % 0-1 (test npoq=7045) POCT-GLUCOSE [id number] 07:29:00 Test Item Value Reference Range Comments POC-GLUCOSE METER (BEAKER) 154 mg/dL 70-110 TESTED AT [address] (test gryk=5865) [place] [facility] [address] VANCOMYCIN LEVEL, [id number] 07:14:00 Test Item Value Reference Range Comments VANCOMYCIN RANDOM (BEAKER) (test kngl=517) 22.5 ug/mL Reference Range: No NormalsBASIC METABOLIC [id number] 07:05:00 Test Item Value Reference Range Comments SODIUM (BEAKER) (test 146 meq/L 136-145 ejpf=456) POTASSIUM (BEAKER) (test 3.5 meq/L 3.5-5.1 nonu=866) CHLORIDE (BEAKER) (test 115 meq/L 98-107 ygsu=231) CO2 (BEAKER) (test 23 meq/L 22-29 tkmh=102) BLOOD UREA NITROGEN 22 mg/dL 7-21 (BEAKER) (test nbtg=718) CREATININE (BEAKER) (test 1.79 mg/dL 0.57-1.25 mmzj=120) GLUCOSE RANDOM (BEAKER) 143 mg/dL 70-105 (test xdvt=619) CALCIUM (BEAKER) (test 8.0 mg/dL 8.4-10.2 hdbx=200) EGFR (BEAKER) (test 28 mL/min/1.73 sq m ESTIMATED GFR IS NOT lntc=9321) ACCURATE CREATININE CLEARANCE IN PREDICTING GLOMERULAR FILTRATION RATE. ESTIMATED GFR IS NOT APPLICABLE FOR DIALYSIS PATIENTS. [id number] 07:02:00 Test Item Value Reference Range Comments PHOSPHORUS (BEAKER) (test ozuc=729) 2.2 mg/dL 2.3-4.7 [id number] 07:02:00 Test Item Value Reference Range Comments MAGNESIUM (BEAKER) (test jaaz=502) 1.6 mg/dL 1.6-2.6 [id number] 06:56:00 Test Item Value Reference Range Comments PROTIME (BEAKER) (test bjmy=089) 15.2 seconds 11.7-14.7 INR (BEAKER) (test zzvn=770) 1.2 <=5.9 PARTIAL THROMBOPLASTIN TIME (BEAKER) (test 25.3 seconds 22.5-36.0 nacu=136) RECOMMENDED COUMADIN/WARFARIN INR THERAPY RANGESSTANDARD DOSE: 2.0 - 3.0 Includes: PROPHYLAXIS forvenous thrombosis, systemic embolization; TREATMENT for venous thrombosis and/or pulmonary embolus.HIGH RISK: Target INR is 2.5-3.5 for patients with mechanical heart valves.BLOOD [id number] 01:00:00 Test Item Value Reference Range Comments CULTURE (BEAKER) (test ecct=0909) No growth in 5 days POCT-GLUCOSE [id number] 21:02:00 Test Item Value Reference Range Comments POC-GLUCOSE METER (BEAKER) 218 mg/dL 70-[address] [facility] [address] [facility] (test bbdy=5986) [facility] [address] BLOOD [id number] 19:00:00 Test Item Value Reference Range Comments CULTURE (BEAKER) (test zuto=2664) No growth in 5 days POCT-GLUCOSE [id number] 17:05:00 Test Item Value Reference Range Comments POC-GLUCOSE METER (BEAKER) 225 mg/dL 70-[address] [facility] [address] [facility] (test ctaj=3608) [facility] [address] VANCOMYCIN LEVEL, [id number] 12:19:00 Test Item Value Reference Range Comments VANCOMYCIN TROUGH (BEAKER) (test sntn=170) 30.8 ug/mL 10.0-20.0 POCT-GLUCOSE [id number] 11:42:00 Test Item Value Reference Range Comments POC-GLUCOSE METER (BEAKER) 332 mg/dL 70-110 Notified SUNI SMITH/TESTED AT [facility] (test dbna=9916) [address] [facility] [address] CBC W/PLT COUNT & AUTO [id number] 09:53:00 Test Item Value Reference Range Comments WHITE BLOOD CELL COUNT (BEAKER) (test gwpj=000) 9.6 K/ L 3.5-10.5 RED BLOOD CELL COUNT (BEAKER) (test icsl=518) 2.65 M/ L 3.93-5.22 HEMOGLOBIN (BEAKER) (test poou=547) 7.5 GM/DL 11.2-15.7 HEMATOCRIT (BEAKER) (test wbut=678) 25.2 % 34.1-44.9 MEAN CORPUSCULAR VOLUME (BEAKER) (test dwss=126) 95.1 fL 79.4-94.8 MEAN CORPUSCULAR HEMOGLOBIN (BEAKER) (test 28.3 pg 25.6-32.2 rynr=086) MEAN CORPUSCULAR HEMOGLOBIN CONC (BEAKER) (test 29.8 GM/DL 32.2-35.5 rxgb=211) RED CELL DISTRIBUTION WIDTH (BEAKER) (test 17.0 % 11.7-14.4 rjxg=860) PLATELET COUNT (BEAKER) (test ebts=441) 429 K/CU MM 150-450 MEAN PLATELET VOLUME (BEAKER) (test qvfh=569) 9.5 fL 9.4-12.3 NUCLEATED RED BLOOD CELLS (BEAKER) (test 0 /100 WBC 0-0 olwp=604) NEUTROPHILS RELATIVE PERCENT (BEAKER) (test 69 % mxpz=723) LYMPHOCYTES RELATIVE PERCENT (BEAKER) (test 18 % dqfx=242) MONOCYTES RELATIVE PERCENT (BEAKER) (test 5 % urml=469) EOSINOPHILS RELATIVE PERCENT (BEAKER) (test 6 % gxum=994) BASOPHILS RELATIVE PERCENT (BEAKER) (test 0 % gmfk=873) NEUTROPHILS ABSOLUTE COUNT (BEAKER) (test 6.59 K/ L 1.56-6.13 whfh=317) LYMPHOCYTES ABSOLUTE COUNT (BEAKER) (test 1.72 K/ L 1.18-3.74 vcoi=840) MONOCYTES ABSOLUTE COUNT (BEAKER) (test 0.44 K/ L 0.24-0.36 thaq=939) EOSINOPHILS ABSOLUTE COUNT (BEAKER) (test 0.60 K/ L 0.04-0.36 ksiv=071) BASOPHILS ABSOLUTE COUNT (BEAKER) (test 0.04 K/ L 0.01-0.08 vnid=091) IMMATURE GRANULOCYTES-RELATIVE PERCENT (BEAKER) 2 % 0-1 (test ljdv=4494) URINE [id number] 08:00:00 Test Item Value Reference Range Comments CULTURE (BEAKER) (test vztx=4741) Ampicillin (test code=26) Linezolid (test code=40) Nitrofurantoin (test code=23) Tetracycline (test code=2) Vancomycin (test code=13) CULTURE (BEAKER) (test >100,000 col/mL hgrr=3926) Enterococcus species GRAM STAIN RESULT (BEAKER) <1+ WBCs (test ffcr=3454) GRAM STAIN RESULT (BEAKER) <1+ gram positive (test egkr=054808) cocci in pairs BASIC METABOLIC [id number] 07:52:00 Test Item Value Reference Range Comments SODIUM (BEAKER) (test 144 meq/L 136-145 novj=229) POTASSIUM (BEAKER) (test 3.9 meq/L 3.5-5.1 zqre=990) CHLORIDE (BEAKER) (test 116 meq/L 98-107 absd=157) CO2 (BEAKER) (test 20 meq/L 22-29 aecr=125) BLOOD UREA NITROGEN 25 mg/dL 7-21 (BEAKER) (test stmt=700) CREATININE (BEAKER) (test 1.99 mg/dL 0.57-1.25 vofl=908) GLUCOSE RANDOM (BEAKER) 209 mg/dL 70-105 (test krxh=425) CALCIUM (BEAKER) (test 7.9 mg/dL 8.4-10.2 zual=090) EGFR (BEAKER) (test 25 mL/min/1.73 sq m ESTIMATED GFR IS NOT xzbq=1689) ACCURATE CREATININE CLEARANCE IN PREDICTING GLOMERULAR FILTRATION RATE. ESTIMATED GFR IS NOT APPLICABLE FOR DIALYSIS PATIENTS. [id number] 07:43:00 Test Item Value Reference Range Comments PHOSPHORUS (BEAKER) (test bpnm=241) 2.1 mg/dL 2.3-4.7 [id number] 07:43:00 Test Item Value Reference Range Comments MAGNESIUM (BEAKER) (test mnqi=090) 2.1 mg/dL 1.6-2.6 POCT-GLUCOSE [id number] 07:36:00 Test Item Value Reference Range Comments POC-GLUCOSE METER (BEAKER) 226 mg/dL 70-110 TESTED AT [address] (test sikn=7092) [place] [id number] POCT-GLUCOSE [id number] 21:12:00 Test Item Value Reference Range Comments POC-GLUCOSE METER (BEAKER) 290 mg/dL 70-110 TESTED AT [address] (test npso=8470) [place] [id number] POCT-GLUCOSE [id number] 17:58:00 Test Item Value Reference Range Comments POC-GLUCOSE METER (BEAKER) 231 mg/dL 70-110 TESTED AT [address] (test raso=1562) [facility] [address] POCT-GLUCOSE [id number] 12:41:00 Test Item Value Reference Range Comments POC-GLUCOSE METER (BEAKER) 212 mg/dL 70-110 TESTED AT [address] (test vbwi=2777) [place] [id number] POCT-GLUCOSE [id number] 07:58:00 Test Item Value Reference Range Comments POC-GLUCOSE METER (BEAKER) 121 mg/dL 70-110 TESTED AT [address] (test puxk=2526) [place] [id number] BASIC METABOLIC [id number] 07:48:00 Test Item Value Reference Range Comments SODIUM (BEAKER) (test 145 meq/L 136-145 audo=349) POTASSIUM (BEAKER) (test 3.8 meq/L 3.5-5.1 yqvi=597) CHLORIDE (BEAKER) (test 115 meq/L 98-107 aciy=284) CO2 (BEAKER) (test 23 meq/L 22-29 fyxb=292) BLOOD UREA NITROGEN 26 mg/dL 7-21 (BEAKER) (test raky=837) CREATININE (BEAKER) (test 1.94 mg/dL 0.57-1.25 dvgq=844) GLUCOSE RANDOM (BEAKER) 111 mg/dL 70-105 (test xgyb=418) CALCIUM (BEAKER) (test 7.7 mg/dL 8.4-10.2 yuap=337) EGFR (BEAKER) (test 26 mL/min/1.73 sq m ESTIMATED GFR IS NOT uloh=0692) ACCURATE CREATININE CLEARANCE IN PREDICTING GLOMERULAR FILTRATION RATE. ESTIMATED GFR IS NOT APPLICABLE FOR DIALYSIS PATIENTS. [id number] 07:41:00 Test Item Value Reference Range Comments PHOSPHORUS (BEAKER) (test ebom=265) 2.5 mg/dL 2.3-4.7 [id number] 07:41:00 Test Item Value Reference Range Comments MAGNESIUM (BEAKER) (test aosp=490) 2.2 mg/dL 1.6-2.6 URINE [id number] 07:34:00 Test Item Value Reference Range Comments CULTURE (BEAKER) (test kuqm=8194) Amikacin (test code=1) Ampicillin + Sulbactam (test code=6) Aztreonam (test code=32) Cefepime (test code=51) Cefoxitin (test code=68) Ceftazidime (test code=27) Ceftriaxone (test code=52) Ertapenem (test code=38) Gentamicin (test code=18) Levofloxacin (test code=22) Meropenem (test code=34) Nitrofurantoin (test code=23) Piperacillin + Tazobactam (test code=29) Tetracycline (test code=2) Tobramycin (test code=25) Trimethoprim + Sulfamethoxazole (test code=47) CULTURE (BEAKER) (test ESCHERICHIA COLI >100,000 col/mL wplx=8144) Escherichia fergusonii Amikacin (test code=1) Ampicillin + Sulbactam (test code=6) Aztreonam (test code=32) Cefepime (test code=51) Cefoxitin (test code=68) Ceftazidime (test code=27) Ceftriaxone (test code=52) Ertapenem (test code=38) Gentamicin (test code=18) Levofloxacin (test code=22) Meropenem (test code=34) Nitrofurantoin (test code=23) Piperacillin + Tazobactam (test code=29) Tetracycline (test code=2) Tobramycin (test code=25) Trimethoprim + Sulfamethoxazole (test code=47) CULTURE (BEAKER) (test 10-19,000 col/mL owaa=8960) Escherichia coli 50-59,000 col/[facility]O [id number] 07: 13:00 Test Item Value Reference Range Comments WHITE BLOOD CELL COUNT (BEAKER) (test lthr=434) 6.7 K/ L 3.5-10.5 RED BLOOD CELL COUNT (BEAKER) (test izlh=235) 2.56 M/ L 3.93-5.22 HEMOGLOBIN (BEAKER) (test xkqf=296) 7.1 GM/DL 11.2-15.7 HEMATOCRIT (BEAKER) (test pdjz=357) 24.1 % 34.1-44.9 MEAN CORPUSCULAR VOLUME (BEAKER) (test ighc=412) 94.1 fL 79.4-94.8 MEAN CORPUSCULAR HEMOGLOBIN (BEAKER) (test 27.7 pg 25.6-32.2 xexu=249) MEAN CORPUSCULAR HEMOGLOBIN CONC (BEAKER) (test 29.5 GM/DL 32.2-35.5 ulki=858) RED CELL DISTRIBUTION WIDTH (BEAKER) (test 16.7 % 11.7-14.4 dbna=273) PLATELET COUNT (BEAKER) (test nwrv=594) 406 K/CU MM 150-450 MEAN PLATELET VOLUME (BEAKER) (test ivxd=956) 9.7 fL 9.4-12.3 NUCLEATED RED BLOOD CELLS (BEAKER) (test 0 /100 WBC 0-0 jbyr=091) NEUTROPHILS RELATIVE PERCENT (BEAKER) (test 58 % lhji=487) LYMPHOCYTES RELATIVE PERCENT (BEAKER) (test 23 % szav=841) MONOCYTES RELATIVE PERCENT (BEAKER) (test 9 % ojjg=226) EOSINOPHILS RELATIVE PERCENT (BEAKER) (test 9 % wszp=180) BASOPHILS RELATIVE PERCENT (BEAKER) (test 0 % ofmd=869) NEUTROPHILS ABSOLUTE COUNT (BEAKER) (test 3.87 K/ L 1.56-6.13 iizc=595) LYMPHOCYTES ABSOLUTE COUNT (BEAKER) (test 1.54 K/ L 1.18-3.74 rmvx=540) MONOCYTES ABSOLUTE COUNT (BEAKER) (test 0.57 K/ L 0.24-0.36 fcdb=413) EOSINOPHILS ABSOLUTE COUNT (BEAKER) (test 0.61 K/ L 0.04-0.36 gsbb=816) BASOPHILS ABSOLUTE COUNT (BEAKER) (test 0.03 K/ L 0.01-0.08 nduv=402) IMMATURE GRANULOCYTES-RELATIVE PERCENT (BEAKER) 1 % 0-1 (test zasu=8088) WOUND CULTURE + GRAM [id number] 06:40:00 Test Item Value Reference Range Comments CULTURE (BEAKER) (test 4+ Skin vaishali niwf=9484) GRAM STAIN RESULT (BEAKER) No WBCs (test zwbz=8208) GRAM STAIN RESULT (BEAKER) <1+ gram positive cocci in pairs (test ryje=509488) GRAM STAIN RESULT (BEAKER) <1+ gram variable coccobacilli (test ecic=937370) 3+ skin floraPOCT-GLUCOSE [id number] 21:35:00 Test Item Value Reference Range Comments POC-GLUCOSE METER (BEAKER) 256 mg/dL 70-110 TESTED AT [address] (test nqef=3356) [facility] [address] POCT-GLUCOSE [id number] 18:50:00 Test Item Value Reference Range Comments POC-GLUCOSE METER (BEAKER) 142 mg/dL 70-110 TESTED AT [address] (test jbin=6223) [facility] [address] POCT-GLUCOSE [id number] 12:24:00 Test Item Value Reference Range Comments POC-GLUCOSE METER (BEAKER) 134 mg/dL 70-110 TESTED AT [address] (test yjdw=2060) [facility] [address] POCT-GLUCOSE [id number] 08:09:00 Test Item Value Reference Range Comments POC-GLUCOSE METER (BEAKER) 151 mg/dL 70-110 TESTED AT [address] (test oprt=9248) [facility] [address] BASIC METABOLIC [id number] 07:37:00 Test Item Value Reference Range Comments SODIUM (BEAKER) (test 143 meq/L 136-145 vyvc=288) POTASSIUM (BEAKER) (test 3.2 meq/L 3.5-5.1 ahoz=666) CHLORIDE (BEAKER) (test 111 meq/L 98-107 ecsy=133) CO2 (BEAKER) (test 25 meq/L 22-29 xibp=629) BLOOD UREA NITROGEN 28 mg/dL 7-21 (BEAKER) (test bauv=454) CREATININE (BEAKER) (test 2.19 mg/dL 0.57-1.25 nipd=361) GLUCOSE RANDOM (BEAKER) 137 mg/dL 70-105 (test plpi=682) CALCIUM (BEAKER) (test 7.8 mg/dL 8.4-10.2 ayrh=833) EGFR (BEAKER) (test 22 mL/min/1.73 sq m ESTIMATED GFR IS NOT gjee=3011) ACCURATE CREATININE CLEARANCE IN PREDICTING GLOMERULAR FILTRATION RATE. ESTIMATED GFR IS NOT APPLICABLE FOR DIALYSIS PATIENTS. [id number] 07:35:00 Test Item Value Reference Range Comments PHOSPHORUS (BEAKER) (test hjzs=664) 2.4 mg/dL 2.3-4.7 [id number] 07:35:00 Test Item Value Reference Range Comments MAGNESIUM (BEAKER) (test vorr=588) 2.2 mg/dL 1.6-2.6 CBC W/PLT COUNT & AUTO [id number] 07:12:00 Test Item Value Reference Range Comments WHITE BLOOD CELL COUNT (BEAKER) (test arhc=639) 7.6 K/ L 3.5-10.5 RED BLOOD CELL COUNT (BEAKER) (test aaqd=515) 2.74 M/ L 3.93-5.22 HEMOGLOBIN (BEAKER) (test xryx=825) 7.5 GM/DL 11.2-15.7 HEMATOCRIT (BEAKER) (test hpzf=808) 25.5 % 34.1-44.9 MEAN CORPUSCULAR VOLUME (BEAKER) (test cybi=453) 93.1 fL 79.4-94.8 MEAN CORPUSCULAR HEMOGLOBIN (BEAKER) (test 27.4 pg 25.6-32.2 hjqw=951) MEAN CORPUSCULAR HEMOGLOBIN CONC (BEAKER) (test 29.4 GM/DL 32.2-35.5 hrem=791) RED CELL DISTRIBUTION WIDTH (BEAKER) (test 16.9 % 11.7-14.4 lzsk=561) PLATELET COUNT (BEAKER) (test rbxp=845) 398 K/CU MM 150-450 MEAN PLATELET VOLUME (BEAKER) (test rbaq=522) 9.8 fL 9.4-12.3 NUCLEATED RED BLOOD CELLS (BEAKER) (test 0 /100 WBC 0-0 whln=116) NEUTROPHILS RELATIVE PERCENT (BEAKER) (test 65 % xmlq=316) LYMPHOCYTES RELATIVE PERCENT (BEAKER) (test 16 % hhjg=015) MONOCYTES RELATIVE PERCENT (BEAKER) (test 11 % gjvi=790) EOSINOPHILS RELATIVE PERCENT (BEAKER) (test 7 % uiwc=851) BASOPHILS RELATIVE PERCENT (BEAKER) (test 1 % hufk=792) NEUTROPHILS ABSOLUTE COUNT (BEAKER) (test 4.93 K/ L 1.56-6.13 foih=933) LYMPHOCYTES ABSOLUTE COUNT (BEAKER) (test 1.21 K/ L 1.18-3.74 iyja=631) MONOCYTES ABSOLUTE COUNT (BEAKER) (test 0.85 K/ L 0.24-0.36 kerr=313) EOSINOPHILS ABSOLUTE COUNT (BEAKER) (test 0.49 K/ L 0.04-0.36 uari=969) BASOPHILS ABSOLUTE COUNT (BEAKER) (test 0.04 K/ L 0.01-0.08 ihyr=731) IMMATURE GRANULOCYTES-RELATIVE PERCENT (BEAKER) 1 % 0-1 (test sued=2511) POCT-GLUCOSE [id number] 20:53:00 Test Item Value Reference Range Comments POC-GLUCOSE METER (BEAKER) 217 mg/dL 70-110 TESTED AT [address] (test sily=5334) [place] [id number] POCT-GLUCOSE [id number] 17:35:00 Test Item Value Reference Range Comments POC-GLUCOSE METER (BEAKER) 246 mg/dL 70-110 TESTED AT [address] (test anjp=7639) [place] [address] POCT-GLUCOSE [id number] 12:11:00 Test Item Value Reference Range Comments POC-GLUCOSE METER (BEAKER) 267 mg/dL 70-110 TESTED AT [address] (test ihba=6861) [place] [address] POCT-GLUCOSE [id number] 07:28:00 Test Item Value Reference Range Comments POC-GLUCOSE METER (BEAKER) 211 mg/dL 70-[address] [facility] [address] (test bkoz=3321) [facility] [address] BASIC METABOLIC [id number] 06:43:00 Test Item Value Reference Range Comments SODIUM (BEAKER) (test 141 meq/L 136-145 gcko=322) POTASSIUM (BEAKER) (test 3.1 meq/L 3.5-5.1 iflk=087) CHLORIDE (BEAKER) (test 106 meq/L 98-107 muhd=455) CO2 (BEAKER) (test 26 meq/L 22-29 ejrf=085) BLOOD UREA NITROGEN 30 mg/dL 7-21 (BEAKER) (test oyuw=926) CREATININE (BEAKER) (test 2.51 mg/dL 0.57-1.25 wlny=421) GLUCOSE RANDOM (BEAKER) 180 mg/dL 70-105 (test yuty=998) CALCIUM (BEAKER) (test 8.1 mg/dL 8.4-10.2 ghbm=064) EGFR (BEAKER) (test 19 mL/min/1.73 sq m ESTIMATED GFR IS NOT wjby=4108) ACCURATE CREATININE CLEARANCE IN PREDICTING GLOMERULAR FILTRATION RATE. ESTIMATED GFR IS NOT APPLICABLE FOR DIALYSIS PATIENTS. [id number] 06:42:00 Test Item Value Reference Range Comments PHOSPHORUS (BEAKER) (test dlhx=948) 2.7 mg/dL 2.3-4.7 [id number] 06:42:00 Test Item Value Reference Range Comments MAGNESIUM (BEAKER) (test hlgt=767) 1.9 mg/dL 1.6-2.6 VANCOMYCIN LEVEL, [id number] 06:37:00 Test Item Value Reference Range Comments VANCOMYCIN RANDOM (BEAKER) (test olzq=288) 9.7 ug/mL Reference Range: No NormalsCBC W/PLT COUNT & AUTO [id number] 06: 18:00 Test Item Value Reference Range Comments WHITE BLOOD CELL COUNT (BEAKER) (test fvmw=520) 12.2 K/ L 3.5-10.5 RED BLOOD CELL COUNT (BEAKER) (test rvqy=309) 2.72 M/ L 3.93-5.22 HEMOGLOBIN (BEAKER) (test jzvv=470) 7.8 GM/DL 11.2-15.7 HEMATOCRIT (BEAKER) (test pooc=556) 25.1 % 34.1-44.9 MEAN CORPUSCULAR VOLUME (BEAKER) (test bsyr=820) 92.3 fL 79.4-94.8 MEAN CORPUSCULAR HEMOGLOBIN (BEAKER) (test 28.7 pg 25.6-32.2 qqwz=654) MEAN CORPUSCULAR HEMOGLOBIN CONC (BEAKER) (test 31.1 GM/DL 32.2-35.5 bkqw=567) RED CELL DISTRIBUTION WIDTH (BEAKER) (test 17.1 % 11.7-14.4 qqtj=053) PLATELET COUNT (BEAKER) (test vegk=352) 429 K/CU MM 150-450 MEAN PLATELET VOLUME (BEAKER) (test onbt=971) 9.6 fL 9.4-12.3 NUCLEATED RED BLOOD CELLS (BEAKER) (test 0 /100 WBC 0-0 mdmw=459) NEUTROPHILS RELATIVE PERCENT (BEAKER) (test 84 % vxvf=863) LYMPHOCYTES RELATIVE PERCENT (BEAKER) (test 6 % tfms=032) MONOCYTES RELATIVE PERCENT (BEAKER) (test 6 % rjue=121) EOSINOPHILS RELATIVE PERCENT (BEAKER) (test 3 % oupe=430) BASOPHILS RELATIVE PERCENT (BEAKER) (test 0 % lecf=269) NEUTROPHILS ABSOLUTE COUNT (BEAKER) (test 10.27 K/ L 1.56-6.13 knen=931) LYMPHOCYTES ABSOLUTE COUNT (BEAKER) (test 0.70 K/ L 1.18-3.74 uedl=179) MONOCYTES ABSOLUTE COUNT (BEAKER) (test 0.77 K/ L 0.24-0.36 vegl=970) EOSINOPHILS ABSOLUTE COUNT (BEAKER) (test 0.37 K/ L 0.04-0.36 gvpi=680) BASOPHILS ABSOLUTE COUNT (BEAKER) (test 0.04 K/ L 0.01-0.08 ymkm=297) IMMATURE GRANULOCYTES-RELATIVE PERCENT (BEAKER) 1 % 0-1 (test ewwg=3515) POCT-GLUCOSE [id number] 21:56:00 Test Item Value Reference Range Comments POC-GLUCOSE METER (BEAKER) 262 mg/dL 70-[address] [facility] [address] [facility] (test slts=6371) [facility] [address] POCT-GLUCOSE [id number] 17:24:00 Test Item Value Reference Range Comments POC-GLUCOSE METER (BEAKER) 210 mg/dL 70-[address] [facility] [address] [facility] (test qprl=1209) [facility] [address] POCT-GLUCOSE [id number] 12:43:00 Test Item Value Reference Range Comments POC-GLUCOSE METER (BEAKER) 176 mg/dL 70-110 TESTED AT [address] (test nbqk=6416) [place] [address] POCT-GLUCOSE [id number] 08:34:00 Test Item Value Reference Range Comments POC-GLUCOSE METER (BEAKER) 185 mg/dL 70-110 TESTED AT [address] (test xokb=7936) [place] [id number] BASIC METABOLIC [id number] 05:34:00 Test Item Value Reference Range Comments SODIUM (BEAKER) (test 143 meq/L 136-145 ztvs=800) POTASSIUM (BEAKER) (test 4.2 meq/L 3.5-5.1 Specimen moderately jkhm=659) hemolyzed CHLORIDE (BEAKER) (test 103 meq/L 98-107 kipb=625) CO2 (BEAKER) (test 25 meq/L 22-29 jflx=158) BLOOD UREA NITROGEN 33 mg/dL 7-21 (BEAKER) (test rydj=925) CREATININE (BEAKER) (test 2.73 mg/dL 0.57-1.25 Specimen moderately mocp=023) hemolyzed GLUCOSE RANDOM (BEAKER) 176 mg/dL 70-105 (test nkrm=275) CALCIUM (BEAKER) (test 8.4 mg/dL 8.4-10.2 mdml=140) EGFR (BEAKER) (test 17 mL/min/1.73 sq m ESTIMATED GFR IS NOT ysze=4797) ACCURATE CREATININE CLEARANCE IN PREDICTING GLOMERULAR FILTRATION RATE. ESTIMATED GFR IS NOT APPLICABLE FOR DIALYSIS PATIENTS. [id number] 05:33:00 Test Item Value Reference Range Comments MAGNESIUM (BEAKER) (test 2.2 mg/dL 1.6-2.6 Specimen moderately hemolyzed hzqs=065) [id number] 05:33:00 Test Item Value Reference Range Comments PHOSPHORUS (BEAKER) (test 3.8 mg/dL 2.3-4.7 Specimen moderately hemolyzed vhzf=256) CBC W/PLT COUNT & AUTO [id number] 05:17:00 Test Item Value Reference Range Comments WHITE BLOOD CELL COUNT (BEAKER) (test wwyo=646) 13.4 K/ L 3.5-10.5 RED BLOOD CELL COUNT (BEAKER) (test kafs=572) 3.04 M/ L 3.93-5.22 HEMOGLOBIN (BEAKER) (test nghd=258) 8.8 GM/DL 11.2-15.7 HEMATOCRIT (BEAKER) (test bdkl=400) 28.1 % 34.1-44.9 MEAN CORPUSCULAR VOLUME (BEAKER) (test nkhg=560) 92.4 fL 79.4-94.8 MEAN CORPUSCULAR HEMOGLOBIN (BEAKER) (test 28.9 pg 25.6-32.2 yzui=004) MEAN CORPUSCULAR HEMOGLOBIN CONC (BEAKER) (test 31.3 GM/DL 32.2-35.5 vkll=683) RED CELL DISTRIBUTION WIDTH (BEAKER) (test 17.3 % 11.7-14.4 lmyu=402) PLATELET COUNT (BEAKER) (test rbjk=040) 422 K/CU MM 150-450 MEAN PLATELET VOLUME (BEAKER) (test yhtf=268) 10.2 fL 9.4-12.3 NUCLEATED RED BLOOD CELLS (BEAKER) (test 0 /100 WBC 0-0 eaje=822) NEUTROPHILS RELATIVE PERCENT (BEAKER) (test 80 % efgf=064) LYMPHOCYTES RELATIVE PERCENT (BEAKER) (test 9 % oiuu=445) MONOCYTES RELATIVE PERCENT (BEAKER) (test 6 % ayma=964) EOSINOPHILS RELATIVE PERCENT (BEAKER) (test 3 % lqwg=981) BASOPHILS RELATIVE PERCENT (BEAKER) (test 0 % lswy=052) NEUTROPHILS ABSOLUTE COUNT (BEAKER) (test 10.72 K/ L 1.56-6.13 icas=712) LYMPHOCYTES ABSOLUTE COUNT (BEAKER) (test 1.23 K/ L 1.18-3.74 orcs=588) MONOCYTES ABSOLUTE COUNT (BEAKER) (test 0.83 K/ L 0.24-0.36 xvbu=695) EOSINOPHILS ABSOLUTE COUNT (BEAKER) (test 0.46 K/ L 0.04-0.36 cccg=236) BASOPHILS ABSOLUTE COUNT (BEAKER) (test 0.05 K/ L 0.01-0.08 dwqg=667) IMMATURE GRANULOCYTES-RELATIVE PERCENT (BEAKER) 0 % 0-1 (test grhd=2808) SEDIMENTATION [id number] 19:57:00 Test Item Value Reference Range Comments SEDIMENTATION RATE, ERYTHROCYTE (BEAKER) (test 120 mm/HR 0-40 omrj=178) POCT-LACTIC ACID, [id number] 19:42:00 Test Item Value Reference Range Comments POC-LACTIC ACID, VENOUS 0.8 mmol/L 0.9-1.[address] [facility] [address] (BEAKER) (test yytr=8258) [place] [address] B-TYPE NATRIURETIC FACTOR (BNP)2017-04-17 19:21:00 Test Item Value Reference Range Comments B-TYPE NATRIURETIC PEPTIDE (BEAKER) (test rufh=220) 80 pg/mL 0-100 C-REACTIVE [id number] 19:16:00 Test Item Value Reference Range Comments C-REACTIVE PROTEIN (BEAKER) (test vcor=792) 27.03 mg/dL 0.00-0.50 URINALYSIS W/ [id number] 18:46:00 Test Item Value Reference Range Comments COLOR (BEAKER) (test uogo=561) Yellow CLARITY (BEAKER) (test poys=027) Clear SPECIFIC GRAVITY UA (BEAKER) (test qkwm=645) 1.012 1.001-1.035 PH UA (BEAKER) (test gdkl=014) 5.0 5.0-8.0 PROTEIN UA (BEAKER) (test kypm=404) 10 mg/dL Negative GLUCOSE UA (BEAKER) (test colq=095) Negative Negative KETONES UA (BEAKER) (test wsmk=818) Negative Negative BILIRUBIN UA (BEAKER) (test qhuq=394) Negative Negative BLOOD UA (BEAKER) (test aqbb=078) Negative Negative NITRITE UA (BEAKER) (test pnat=076) Negative Negative LEUKOCYTE ESTERASE UA (BEAKER) (test wkep=213) Moderate Negative UROBILINOGEN UA (BEAKER) (test xftn=621) 0.2 mg/dL 0.2-1.0 RBC UA (BEAKER) (test hobb=226) 1 /HPF WBC UA (BEAKER) (test bedv=313) 2 /HPF BACTERIA (BEAKER) (test qwpi=886) Few SQUAMOUS EPITHELIAL (BEAKER) (test fwxe=875) 1 /HPF HYALINE CASTS (BEAKER) (test mgou=632) 17 /LPF CRYSTALS, URINE (BEAKER) (test fuec=1979) Rare SOURCE(BEAKER) (test glla=9771) Urine, Voided RAD, FOOT, MIN 3 VIEWS, [id number] 18:17:00Reason for exam:->foot pain, ulcerFINAL REPORT Technique: 3 views of the left foot COMPARISON: None FINDINGS: Gas in the soft tissues overlying the calcaneus could be due to infection and/or injury. No definite radiographic evidence of of underlying osteomyelitis. If there is concern for the latter, three-phase bone scan or MRI would be more sensitive. No definite fracture or dislocation. There is diffuse osteopenia. Chronic appearing contractures at the MTP joints, and the PIP joints noted. Signed: Kristofer [place] Verified Date/Time: 04/2017 18:17:28 Reading Location: [address] Consult Reading Room RAD, CHEST, 1 VIEW, NON [id number] 17:44:00Reason for exam:->Cough, SOBReason for exam:->NAUSEAShould this be performed at the bedside?->YesFINAL REPORT TECHNIQUE: Frontal chest radiograph dated 04/17/2017. CLINICAL HISTORY: Cough, SOB, nausea COMPARISON STUDY: None FINDINGS: Lungs are clear. No pleural effusion orpneumothorax. Cardiomediastinal silhouette is normal in size. No pulmonary edema. Dextroscoliosis ofthe thoracic and lumbar spine is visualized. No fracture. IMPRESSION: Clear lungs. Signed: Jennie Flore[place] Verified Date/Time: 04/17/2017 17:44:10 Reading Location: [facility] Radiology ReadingRoom BASI METABOLIC [id number] 16:45:00 Test Item Value Reference Range Comments SODIUM (BEAKER) (test 146 meq/L 136-145 nqde=106) POTASSIUM (BEAKER) (test 3.6 meq/L 3.5-5.1 Specimen slightly rdgj=539) hemolyzed CHLORIDE (BEAKER) (test 101 meq/L 98-107 nrqp=412) CO2 (BEAKER) (test 24 meq/L 22-29 vvla=432) BLOOD UREA NITROGEN 37 mg/dL 7-21 (BEAKER) (test etaj=626) CREATININE (BEAKER) (test 3.08 mg/dL 0.57-1.25 Specimen slightly rpfw=903) hemolyzed GLUCOSE RANDOM (BEAKER) 265 mg/dL 70-105 (test wkue=119) CALCIUM (BEAKER) (test 8.8 mg/dL 8.4-10.2 trbm=294) EGFR (BEAKER) (test 15 mL/min/1.73 sq m ESTIMATED GFR IS NOT qygr=7725) ACCURATE CREATININE CLEARANCE IN PREDICTING GLOMERULAR FILTRATION RATE. ESTIMATED GFR IS NOT APPLICABLE FOR DIALYSIS PATIENTS. [id number] 16:32:00 Test Item Value Reference Range Comments LIPASE (BEAKER) (test lblf=553) 78 U/L 8-78 [id number] 16:32:00 Test Item Value Reference Range Comments AMYLASE (BEAKER) (test xmmu=924) 28 U/L 25-125 Specimen slightly hemolyzed HEPATIC FUNCTION [id number] 16:32:00 Test Item Value Reference Range Comments TOTAL PROTEIN (BEAKER) (test 6.2 gm/dL 6.0-8.3 Specimen slightly hemolyzed yiqe=323) ALBUMIN (BEAKER) (test 2.7 g/dL 3.5-5.0 Specimen slightly hemolyzed diny=4835) BILIRUBIN TOTAL (BEAKER) (test < mg/dL 0.2-1.2 Specimen slightly hemolyzed klqn=186) BILIRUBIN DIRECT (BEAKER) (test 0.1 mg/dL 0.1-0.5 Specimen slightly hemolyzed qhye=364) ALKALINE PHOSPHATASE (BEAKER) 59 U/L 40-150 (test wdil=040) AST (SGOT) (BEAKER) (test 21 U/L 5-34 Specimen slightly hemolyzed efio=534) ALT (SGPT) (BEAKER) (test 16 U/L 6-55 Specimen slightly hemolyzed yxfg=372) CBC W/PLT COUNT & AUTO [id number] 16:25:00 Test Item Value Reference Range Comments WHITE BLOOD CELL COUNT (BEAKER) (test yeyp=133) 17.8 K/ L 3.5-10.5 RED BLOOD CELL COUNT (BEAKER) (test bdgg=734) 2.39 M/ L 3.93-5.22 HEMOGLOBIN (BEAKER) (test tbkp=591) 6.7 GM/DL 11.2-15.7 HEMATOCRIT (BEAKER) (test vgyz=807) 22.6 % 34.1-44.9 MEAN CORPUSCULAR VOLUME (BEAKER) (test wodl=444) 94.6 fL 79.4-94.8 MEAN CORPUSCULAR HEMOGLOBIN (BEAKER) (test 28.0 pg 25.6-32.2 ccyd=573) MEAN CORPUSCULAR HEMOGLOBIN CONC (BEAKER) (test 29.6 GM/DL 32.2-35.5 htla=074) RED CELL DISTRIBUTION WIDTH (BEAKER) (test 16.8 % 11.7-14.4 ypkk=536) PLATELET COUNT (BEAKER) (test tero=694) 512 K/CU MM 150-450 MEAN PLATELET VOLUME (BEAKER) (test qerh=035) 10.0 fL 9.4-12.3 NUCLEATED RED BLOOD CELLS (BEAKER) (test 0 /100 WBC 0-0 dwyc=782) NEUTROPHILS RELATIVE PERCENT (BEAKER) (test 90 % hdol=624) LYMPHOCYTES RELATIVE PERCENT (BEAKER) (test 3 % trsc=765) MONOCYTES RELATIVE PERCENT (BEAKER) (test 6 % nati=674) EOSINOPHILS RELATIVE PERCENT (BEAKER) (test 1 % rohm=454) BASOPHILS RELATIVE PERCENT (BEAKER) (test 0 % doyl=555) NEUTROPHILS ABSOLUTE COUNT (BEAKER) (test 15.96 K/ L 1.56-6.13 zuhm=354) LYMPHOCYTES ABSOLUTE COUNT (BEAKER) (test 0.54 K/ L 1.18-3.74 ddly=254) MONOCYTES ABSOLUTE COUNT (BEAKER) (test 1.04 K/ L 0.24-0.36 btbe=014) EOSINOPHILS ABSOLUTE COUNT (BEAKER) (test 0.13 K/ L 0.04-0.36 cugj=785) BASOPHILS ABSOLUTE COUNT (BEAKER) (test 0.03 K/ L 0.01-0.08 sxtb=383) IMMATURE GRANULOCYTES-RELATIVE PERCENT (Screen TonicAKER) 0 % 0-1 (test zfdb=1899)
[2018-07-02 14:06] LABS: Absolute Lymphocytes (CBC) 1.4 K/uL (0.7-4.9); Absolute Monocytes 0.7 K/uL (0.1-1.3); Absolute Neutrophil 6.5 K/uL (1.8-8.0); Basophils % 0.7 % (0-1.3); Eosinophils % 2.1 % (0-4.4); Hematocrit 29.2 % (36.0-45.0); Lymphocytes % 16.2 % (15.3-44.8); MPV 9.1 fL (7.6-11.3); Monocytes % 7.6 % (3.3-12.3); RBC Red Blood Cell Count 3.14 M/uL (3.86-4.86)
[2018-07-02 14:31] LABS: ALT/SGPT 24 U/L (12-78); AST/SGOT 12 U/L (15-37); Albumin 2.4 g/dL (3.4-5.0); Alkaline Phosphatase 39 U/L (45-117); BUN Blood Urea Nitrogen 63 mg/dL (7-18); Bicarbonate 25 mmol/L (21-32); Bilirubin Direct < 0.1 mg/dL (0-0.2); Bilirubin Total 0.1 mg/dL (0.2-1.0); Glucose Level 128 mg/dL (74-106); Lipase 81 U/L (73-393); Potassium 4.9 mmol/L (3.5-5.1); Protein, Total 5.4 g/dL (6.4-8.2); Sodium Level 147 mmol/L (136-145)
--- NOTE | 2018-07-02 14:58 | RAD REPORT ---
EXAM DESCRIPTION: CT - Stone Protocol - 07/02/2018 2:13 pm CLINICAL HISTORY: Abdominal pain. Flank pain COMPARISON: None. TECHNIQUE: Computed axial tomography of the abdomen pelvis was obtained without oral or IV contrast. Lack of IV and oral contrast limits evaluation of solid organs, bowel, and vessels. Coronal reformat jamison images were obtained and reviewed. All CT scans are performed using dose optimization technique as appropriate and may include automated exposure control or mA/KV adjustment according to patient size. FINDINGS: A renal calculus is not seen. An ureteral calculus is not noted. A bladder calculus is not present. A 15 millimeter focal bulge right kidney The liver, spleen, pancreas and adrenals appear grossly normal Diverticula stem from the colon. Mild to moderate stranding adjacent to the proximal sigmoid colon. N o abscess. No free air Mild anterior subluxation L4 and L5 with sclerosis of the vertebral endplates, osteophytes and vacuum phenomena IMPRESSION: Negative for a genitourinary calculus Mild to moderate sigmoid diverticulitis Sclerosis of the vertebral endplates of L4 and L5 probably secondary to degenerative changes. However , infection and inflammation can also have this appearance and should be should be correlated clinica lly and with appropriate lab values 15 millimeter focal bulge right kidney may represent a lobulation or mass. Nonemergent renal ul trasound recommended for further evaluation
[2018-07-02] MEDS ORDERED: TRAMADOL HCL 50 MG TAB ONE (15:23)
[2018-07-02] MEDS ORDERED: NA CHLORIDE 0.9% 500 ML ONE (15:24)
--- NOTE | 2018-07-02 15:54 | ER ---
Nurse's Notes [facility] Name: Dahlia Christensen Age: 67 yrs Sex: Female : 1950 Arrival Date: 07/02/2018 Time: 11:30 Bed 14 Private MD: Diagnosis: Low back pain;Unspecified kidney failure;Sigmoid Diverticulitis Presentation: 07/02 11:24 Presenting complaint: EMS states: back pain that radiates to the LLE. +ROM, BP 147/78, sv 22G right thumb, Toradol 30 mg IVP given. "Pain was a 200 and is now a 5.". Transition of care: patient was not received from another setting of care. Onset of symptoms was July 02, 2018. Risk Assessment: Do you want to hurt yourself or someone else? Patient reports no desire to harm self or others. Initial Sepsis Screen: Does the patient meet any 2 criteria? No. Patient's initial sepsis screen is negative. Does the patient have a suspected source of infection? No. Patient's initial sepsis screen is negative. Care prior to arrival: Medication(s) given: Toradol 30 mg IVP IV initiated. 22 GA, in the right thumb. 11:24 Method Of Arrival: EMS: [facility] sv 11:24 Acuity: YVETTE 4 sv 11:34 Note Pt took a muscle relaxer this morning. sv Triage Assessment: 11:25 General: Appears in no apparent distress. uncomfortable, obese, well developed, sv Behavior is calm, cooperative, appropriate for age. Pain: Complains of pain in back and left leg Pain currently is 5 out of 10 on a pain scale. Quality of pain is described as shooting. Neuro: Level of Consciousness is awake, alert, obeys commands, Oriented to person, place, time, situation, Moves all extremities. Full function. Respiratory: Respiratory effort is even, unlabored, Respiratory pattern is regular, symmetrical. Derm: Skin is pink, warm \\T\\ dry. Historical: - Allergies: 11:34 PENICILLINS; sv 11:34 erythromycin base; sv - PMHx: 11:34 left breast calcifications; Hyperlipidemia; Hypertension; kidney disease; Diabetes - sv NIDDM; - Immunization history:: Adult Immunizations up to date. - Social history:: Smoking status: Patient/guardian denies using tobacco. - Ebola Screening: : No symptoms or risks identified at this time. Screenin:36 Abuse screen: Denies threats or abuse. Denies injuries from another. Nutritional sv screening: No deficits noted. Tuberculosis screening: No symptoms or risk factors identified. Fall Risk None identified. Assessment: 12:11 Reassessment: Patient appears in no apparent distress at this time. No changes from previously documented assessment. Patient and/or family updated on plan of care and expected duration. Pain level reassessed. Patient is alert, oriented x 3, equal unlabored respirations, skin warm/dry/pink. 14:00 Reassessment: Patient appears in no apparent distress at this time. Patient and/or sv family updated on plan of care and expected duration. Pain level reassessed. Patient is alert, oriented x 3, equal unlabored respirations, skin warm/dry/pink. Patient denies pain at this time. Patient states feeling better. Patient states symptoms have improved. 15:20 Reassessment: Patient appears in no apparent distress at this time. Patient and/or sv family updated on plan of care and expected duration. Pain level reassessed. Patient is alert, oriented x 3, equal unlabored respirations, skin warm/dry/pink. 16:21 Reassessment: Dr Villalobos at bedside. 17:00 Reassessment: Patient appears in no apparent distress at this time. No changes from previously documented assessment. Patient and/or family updated on plan of care and expected duration. Pain level reassessed. Patient is alert, oriented x 3, equal unlabored respirations, skin warm/dry/pink. Patient denies pain at this time. 18:11 Reassessment: Patient appears in no apparent distress at this time. Patient and/or sv family updated on plan of care and expected duration. Pain level reassessed. Patient is alert, oriented x 3, equal unlabored respirations, skin warm/dry/pink. Patient denies pain at this time. 18:47 Reassessment: Attempted to call report to [facility] nurse unable to take report at this time. 19:15 Reassessment: Patient appears in no apparent distress at this time. Patient and/or cc3 family updated on plan of care and expected duration. Pain level reassessed. Patient is alert, oriented x 3, equal unlabored respirations, skin warm/dry/pink. Received this female patient from morning shift SUNI Castañeda as a case of back pain for transfer to [facility], report handed over already just waiting for transport as endorsed. 19:50 Reassessment: [facility] came to fetch the patient for transfer. Patient left ER cc3 vitally stable by EMS stretcher with her family. Vital Signs: 11:34 BP 152 / 64; Pulse 83; Resp 18; Temp 99; Pulse Ox 97% ; Weight 113.4 kg; Height 5 ft. 5 sv in. (165.10 cm); Pain 5/10; 12:00 BP 145 / 61; Pulse 79; Resp 18; Pulse Ox 96% ; sv 12:30 BP 152 / 64; Pulse 80; Resp 18; Pulse Ox 97% ; sv 13:30 BP 148 / 46; Pulse 83; Resp 18; Pulse Ox 98% ; sv 14:29 BP 134 / 54; Pulse 88; Resp 20; Temp 97.5(TE); Pulse Ox 97% ; mh5 16:11 BP 158 / 63; Pulse 86; Resp 20; Temp 97.3; Pulse Ox 98% ; mh5 17:48 BP 146 / 56; Pulse 90; Resp 20; Temp 98.8(TE); Pulse Ox 100% ; wj1 19:30 BP 150 / 68; Pulse 89; Resp 18 S; Temp 98.6(O); Pulse Ox 97% on R/A; cc3 11:34 Body Mass Index 41.60 (113.40 kg, 165.10 cm) sv ED Course: 11:24 Maintain EMS IV. Dressing intact. Site clean \\T\\ dry. Gauge \\T\\ site: 22G right thumb. sv 11:30 Patient arrived in ED. sv 11:30 Maddy Vilchis, SUNI is Primary Nurse. sv 11:32 Triage completed. sv 11:34 Arm band placed on Patient placed in an exam room. sv 11:36 Patient has correct armband on for positive identification. Bed in low position. Call sv light in reach. Side rails up X2. Pulse ox on. NIBP on. Door closed. Head of bed elevated. 12:11 Awaiting ED provider evaluation. sv 13:09 Wilian Morelos PA is PHCP. cp 13:09 Darwin Garcia MD is Attending Physician. cp 14:12 CT completed. Patient tolerated procedure well. Patient moved back from CT. bq 14:13 CT Stone Protocol In Process Unspecified. EDMS 15:52 Meghan Villalobos MD is Hospitalizing Provider. cp 18:10 transfer approval from receiving facility. sv 19:12 Primary Nurse role handed off by Maddy Vilchis RN sv 19:50 No provider procedures requiring assistance completed. Patient transferred, IV remains cc3 in place. Administered Medications: 15:20 Drug: NS 0.9% 500 ml {Note: right thumb.} Route: IV; Rate: bolus; Site: Other; sv 16:15 Follow up: Response: No adverse reaction; IV Status: Completed infusion; IV Intake: sv 500ml 15:20 Drug: traMADol 50 mg Route: PO; sv 15:30 Follow up: Response: No adverse reaction sv 16:05 Drug: metroNIDAZOLE 500 mg {Note: right thumb.} Volume: 100 ml; Route: IVPB; Infused sv Over: 30 mins; Site: Other; 17:21 Follow up: Response: No adverse reaction; IV Status: Completed infusion; IV Intake: sv 100ml 17:21 Drug: vancoMYCIN 1 grams {Note: right thumb.} Route: IVPB; Infused Over: 2 hrs; Site: sv Other; 19:30 Follow up: Response: No adverse reaction; IV Status: Completed infusion; IV Intake: cc3 250ml 17:53 Not Given (MD discretion): Cipro 200 mg 100 ml IVPB once over 60 mins sv Point of Care Testing: Blood Glucose: 13:08 Blood Glucose: 111 mg/dL; mh5 Ranges: Intake: 16:15 IV: 500ml; Total: 500ml. sv 17:21 IV: 100ml; Total: 600ml. sv 19:30 IV: 250ml; Total: 850ml. cc3 Outcome: 15:54 Decision to Hospitalize by Provider. cp 17:42 ER care complete, transfer ordered by MD. cp 19:50 Transferred to [facility], [facility], Transfer form completed. cc3 19:50 Condition: stable 19:50 Instructed on the need for transfer, Demonstrated understanding of instructions. 19:52 Patient left the ED. cc3 Signatures: Dispatcher [employer] EDMS Maddy Vilchis RN RN sv Ashlie Devine Corey, PA PA cp Martinez, Maria 5 Italia Landaverde wArleen Tabares cc3 Corrections: (The following items were deleted from the chart) 11:36 11:24 Presenting complaint: EMS states: back pain that radiates to the LLE. +ROM, BP sv 147/78, 22G right thumb, Toradol 30 mg IVP given. sv
--- NOTE | 2018-07-02 15:55 | EDPHYS ---
Physician Documentation [facility] Name: Dahlia Christensen Age: 67 yrs Sex: Female : 1950 Arrival Date: 07/02/2018 Time: 11:30 Bed 14 Private MD: ED Physician Darwin Garcia HPI: 07/02 13:25 This 67 yrs old Female presents to ER via EMS with complaints of Back Pain - cp w/radiation to LLE. 13:25 The patient presents with pain that is acute, with no known mechanism of injury. cp 13:25 The symptoms are located in the low back. Onset: The symptoms/episode began/occurred cp suddenly, today. The pain radiates to the left leg. 13:25 Associated signs and symptoms: Pertinent negatives: abdominal pain, chest pain, cp constipation, dysuria, fever, hematuria, incontinence, urinary retention, vomiting, weakness. 13:25 The problem was sustained from unknown cause. Modifying factors: the patient symptoms cp are aggravated by any movement. Severity of symptoms: in the emergency department the symptoms have improved, moderately. Historical: - Allergies: 11:34 PENICILLINS; sv 11:34 erythromycin base; sv - PMHx: 11:34 left breast calcifications; Hyperlipidemia; Hypertension; kidney disease; Diabetes - sv NIDDM; - Immunization history:: Adult Immunizations up to date. - Social history:: Smoking status: Patient/guardian denies using tobacco. - Ebola Screening: : No symptoms or risks identified at this time. ROS: 13:30 Constitutional: Negative for body aches, chills, fever, poor PO intake. cp 13:30 Eyes: Negative for injury, pain, redness, and discharge. cp 13:30 Neck: Negative for pain with movement, pain at rest, stiffness, bony tenderness. 13:30 Cardiovascular: Negative for chest pain, edema, palpitations. 13:30 Respiratory: Negative for cough, shortness of breath, wheezing. 13:30 Abdomen/GI: Negative for nausea, vomiting, and diarrhea, constipation, black/tarry stool, rectal bleeding. 13:30 Back: Positive for pain at rest, pain with movement, of the left low back, Negative for injury or acute deformity. 13:30 : Negative for urinary symptoms, bladder incontinence. 13:30 Skin: Negative for cellulitis, rash. 13:30 Neuro: Negative for altered mental status, headache, numbness, syncope, weakness. 13:30 All other systems are negative. Exam: 13:35 Constitutional: The patient appears in no acute distress, alert, awake, cp non-diaphoretic, non-toxic, well developed, well nourished, obese. 13:35 Head/Face: Normocephalic, atraumatic. cp 13:35 Eyes: Periorbital structures: appear normal, Conjunctiva: normal, no exudate, no injection, Sclera: no appreciated abnormality, Lids and lashes: appear normal, bilaterally. 13:35 ENT: External ear(s): are unremarkable, Ear canal(s): are normal, clear, TM's: bulging, is not appreciated, bilaterally, dullness, bilaterally, erythema, is not appreciated, bilaterally, Nose: is normal, Mouth: Lips: moist, Oral mucosa: pink and intact, moist, Posterior pharynx: is normal, airway is patent, no erythema, no exudate, Voice: is normal. 13:35 Neck: ROM/movement: is normal, is supple, without pain, no range of motions limitations, no meningismus, no nuchal rigidity. 13:35 Chest/axilla: Inspection: normal, Palpation: is normal, no crepitus, no tenderness. 13:35 Cardiovascular: Rate: normal, Rhythm: regular, Edema: is not appreciated, JVD: is not appreciated. 13:35 Respiratory: the patient does not display signs of respiratory distress, Respirations: normal, no use of accessory muscles, no retractions, no splinting, no tachypnea, labored breathing, is not present, Breath sounds: are clear throughout, no decreased breath sounds, no stridor, no wheezing. 13:35 Abdomen/GI: Inspection: obese Bowel sounds: active, all quadrants, Palpation: soft, in all quadrants, mild abdominal tenderness, in the left upper quadrant and left lower quadrant, rebound tenderness, is not appreciated, voluntary guarding, is not appreciated, involuntary guarding, is not appreciated. 13:35 Back: pain, that is moderate, of the left low back, ROM is painful, with flexion, Straight leg raises: of both lower extremities does not illicit pain. 13:35 Skin: cellulitis, is not appreciated, no rash present. 13:35 Neuro: Orientation: to person, place \\T\\ time. Mentation: is normal, Cerebellar function: is grossly normal, Motor: moves all fours, Sensation: light touch is decreased in the right foot and left foot. 18:10 Neuro: Orientation: is normal, Mentation: is normal, Cranial nerves: CN II- XII are pm1 normal as tested, Motor: moves all fours, strength is 5/5 in the right leg, strength is 4/5 in the left leg, Sensation: decreased sensation to bilateral feet. Vital Signs: 11:34 BP 152 / 64; Pulse 83; Resp 18; Temp 99; Pulse Ox 97% ; Weight 113.4 kg; Height 5 ft. 5 sv in. (165.10 cm); Pain 5/10; 12:00 BP 145 / 61; Pulse 79; Resp 18; Pulse Ox 96% ; sv 12:30 BP 152 / 64; Pulse 80; Resp 18; Pulse Ox 97% ; sv 13:30 BP 148 / 46; Pulse 83; Resp 18; Pulse Ox 98% ; sv 14:29 BP 134 / 54; Pulse 88; Resp 20; Temp 97.5(TE); Pulse Ox 97% ; mh5 16:11 BP 158 / 63; Pulse 86; Resp 20; Temp 97.3; Pulse Ox 98% ; mh5 17:48 BP 146 / 56; Pulse 90; Resp 20; Temp 98.8(TE); Pulse Ox 100% ; wj1 19:30 BP 150 / 68; Pulse 89; Resp 18 S; Temp 98.6(O); Pulse Ox 97% on R/A; cc3 11:34 Body Mass Index 41.60 (113.40 kg, 165.10 cm) sv MDM: 13:09 Patient medically screened. cp 13:30 Differential diagnosis: Cholelithiasis chronic back pain, Hydronephrosis Pyelonephritis cp Renal Infarction ruptured disc, Ureterolithiasis vertebral fracture. 18:00 ED course: Received patient reports from Wilian WHALEN. He attempted to admit patient here pm1 but hospitalist, Dr. Villalobos, requested transfer for neurology consult and MRI due to CT results, "Sclerosis of vertebral endplates of L4 and L5 probably secondary to degenerative changes. However, infection and inflammation can also have this appearance and should be correlated clinically and with lab values." She was concerned over possible infectious etiology for low back pain and would like MRI and neurology consult. 18:10 Physician consultation: [facility] Imer regarding regarding transfer, pm1 consult, patient's condition, and will see patient. 18:12 Data reviewed: vital signs. Data interpreted: Pulse oximetry: on room air is 100 %. pm1 Interpretation: normal. 18:18 Physician consultation: [facility] was contacted at 18:20, regarding pm1 regarding transfer, to [facility]. patient's condition, and will see patient. 07/02 13:22 Order name: Basic Metabolic Panel; Complete Time: 14:59 07/02 15:01 Interpretation: Normal except: NA 147; CL 115; GLUC 128; BUN 63; CRE 2.99; GFR 16; CA cp 8.2. 07/02 13:22 Order name: CBC with Diff; Complete Time: 14:59 07/02 15:00 Interpretation: Normal except: RBC 3.14; HGB 9.4; HCT 29.2; RDW 15.7. 07/02 13:22 Order name: Creatinine for Radiology; Complete Time: 14:59 cp 07/02 15:38 Interpretation: Abnormal. 07/02 13:22 Order name: Hepatic Function; Complete Time: 14:59 cp 07/02 15:38 Interpretation: Normal except: AST 12; ALK 39; BILIT 0.1; TP 5.4; ALB 2.4; A/G 0.8. 07/02 13:22 Order name: Lipase; Complete Time: 14:59 07/02 13:23 Order name: Urine Microscopic Only 07/02 13:22 Order name: IV Saline Lock; Complete Time: 14:18 cp 07/02 13:22 Order name: Labs collected and sent; Complete Time: 14:18 07/02 13:23 Order name: CT Stone Protocol; Complete Time: 14:59 07/02 13:23 Order name: Urine Dipstick-Ancillary (obtain specimen); Complete Time: 19:38 cp Administered Medications: 15:20 Drug: NS 0.9% 500 ml {Note: right thumb.} Route: IV; Rate: bolus; Site: Other; sv 16:15 Follow up: Response: No adverse reaction; IV Status: Completed infusion; IV Intake: sv 500ml 15:20 Drug: traMADol 50 mg Route: PO; sv 15:30 Follow up: Response: No adverse reaction sv 16:05 Drug: metroNIDAZOLE 500 mg {Note: right thumb.} Volume: 100 ml; Route: IVPB; Infused sv Over: 30 mins; Site: Other; 17:21 Follow up: Response: No adverse reaction; IV Status: Completed infusion; IV Intake: sv 100ml 17:21 Drug: vancoMYCIN 1 grams {Note: right thumb.} Route: IVPB; Infused Over: 2 hrs; Site: sv Other; 19:30 Follow up: Response: No adverse reaction; IV Status: Completed infusion; IV Intake: cc3 250ml 17:53 Not Given (MD discretion): Cipro 200 mg 100 ml IVPB once over 60 mins sv Point of Care Testing: Blood Glucose: 13:08 Blood Glucose: 111 mg/dL; 5 Ranges: Critical Glucose Levels:Adult <50 mg/dl or >400 mg/dl <40 mg/dl or >180 mg/dl Disposition: 07/02/18 17:42 Transfer ordered to [facility]. Diagnosis are Low back pain, Unspecified kidney failure, Sigmoid Diverticulitis. - Reason for transfer: Higher level of care. - Accepting physician is Doctor. - Condition is Stable. - Problem is new. - Symptoms have improved. Addendum: 07/06/2018 15:23 Co-signature as Attending Physician, Darwin Garcia MD. m a2 Signatures: Dispatcher [employer] Maddy Collier RN RN sv Wilian Morelos, KOBY PA cp Jesús Dixon, MEDICAL ONCOLOGY PHYSICIAN MEDICAL ONCOLOGY PHYSICIAN pm1 Darwin Garcia MD MD ma2 Arleen Stiles cc3 Corrections: (The following items were deleted from the chart) 07/02 15:01 15:00 Normal except: NA 147; CL 115; GLUC 128; BUN 63; CRE 2.99; GFR 16. cp cp 16:38 15:54 Hospitalization Ordered by Meghan Villalobos MD for Observation. Preliminary cp diagnosis is Sigmoid Diverticulitis. Bed requested for Telemetry/MedSurg (observation). Status is Observation. Condition is Stable. Problem is new. Symptoms have improved. UTI on Admission? No. cp 19:52 17:42 07/02/2018 17:42 Transfer ordered to [facility]. Diagnosis is cc3 Low back pain; Unspecified kidney failure; Sigmoid Diverticulitis. Reason for transfer: Higher level of care. Accepting physician is Doctor. Condition is Stable. Problem is new. Symptoms have improved. cp
[2018-07-02] MEDS ORDERED: CIPROFLOXACIN 400mg IV 0 MG/0 ML BAG IV ONE (16:01)
[2018-07-02] MEDS ORDERED: METRONIDAZOLE 500mg IVPB 500 MG/100 ML BAG IV ONE (16:01)
[2018-07-02] MEDS ORDERED: VANCOMYCIN 1 GM/250 ML BAG ONE (17:14)
[2018-07-02 20:08] LABS: Urine Bacteria >50 /HPF (<20); Urine Culture Reflex Order NOT NEEDED; Urine RBC <5 /HPF (NONE SEEN)
[2018-07-02 20:22] VITALS: BP 146/56; TEMP 98.8; O2SAT 100
== END 2018-07-02 19:52 | disposition short-term general hospital (02) ==
LOC: ER 11:22
DX: N19 Unspecified kidney failure (principal); K57.32 Diverticulitis of large intestine without perforation or abscess without bleeding; I10 Essential (primary) hypertension; Z88.0 Allergy status to penicillin; Z88.3 Allergy status to other anti-infective agents
CPT/HCPCS: 36415; 74176; 76377; 80048; 80076; 81015; 82962; 83690; 85025; 96361; 96365; 96366; 96367; 99285; J3370; J0744